=== PATIENT | female | born 1940 | race Caucasian/White ===

== ENCOUNTER → 2017-04-11 | Outpatient (CLI) | payer MEDICARE, BC ==
--- NOTE | 2017-04-11 11:14 | MR ---
EXAMINATION TYPE: MR brain wo con, MR angio head wo con DATE OF EXAM: 04/11/2017 10:55 AM COMPARISON: NONE HISTORY: chronic post traumatic headaches FINDINGS: The ventricles, basal cisterns and sulci overlying the cerebral convexities are mildly enlarged. There is evidence of mild periventricular white matter ischemic demyelination. Remote deep white matter insults are also noted. No acute edema is seen on diffusion weighted imaging. There is no evidence for midline shift or mass effect. Acute intracranial hemorrhage or extra-axial collection is not evident. Complete opacification left maxillary sinus with inspissated mucus. Additional mucosal thickening of the sphenoid sinus ethmoid air cells and frontal sinus. Mastoid air cells are well-aerated IMPRESSION: Age-related atrophic and chronic small vessel ischemic change. No acute intracranial process at this time. Chronic sinusitis. EXAMINATION TYPE: MR brain wo con, MR angio head wo con DATE OF EXAM: 04/11/2017 10:55 AM COMPARISON: NONE HISTORY: chronic post traumatic headaches Three-dimensional [id number] intracranial MRA was performed with multiple intensity projection im ages submitted and source data reviewed at the workstation. The vertebrobasilar system as well as intracranial portions of the internal carotid arteries and thei r major tributaries are patent. I do not see evidence for sizable aneurysm or vascular malformation. IMPRESSION: Normal study.
== END | disposition home or self-care (01) ==
LOC: RADMRIMAIN 10:02
PROVIDERS: ATTEND Psychiatry & Neurology Neurology
DX: G31.9 Degenerative disease of nervous system, unspecified (principal); I67.82 Cerebral ischemia
CPT/HCPCS: 70544; 70551

== ENCOUNTER 2017-12-05 23:12 | Inpatient (IN) | payer MEDICARE, BC ==
[2017-12-05] MEDS ORDERED: ONDANSETRON 4 MG/2 ML VIAL IVP STA (23:37)
[2017-12-05] MEDS ORDERED: SODIUM CHLORIDE 0.9% 500 ML IV STA (23:37)
--- NOTE | 2017-12-05 23:45 | ED ---
Weakness HPI - General Chief complaint: Weakness Stated complaint: flu like symptoms Time Seen by Provider: 12/05/17 23:16 Source: patient, EMS Mode of arrival: EMS Limitations: physical limitation - History of Present Illness Initial comments: This patient is 77-year-old woman who presents by ambulance to be evaluated for vomiting and weakness. The patient states that she was in her usual state of health until about 4 days ago when she started feeling nauseated and having multiple rounds of vomiting. She states that over the past few days she has also started feeling fatigued and having generalized weakness. She denies any focal weakness. The patient is denying any pains including no pain in the chest , back, or abdomen. She is not having any shortness of breath she states she was trying to walk and then she had some exertional dyspnea. Patient's history is notable for previous coronary bypass approximately 10 years ago. She states that these are not the symptoms she was having at that time. MD Complaint: generalized weakness Onset/Timin -: days(s) - Related Data Home Medications Medication Instructions Recorded Confirmed Alendronate Sodium [Fosamax] 35 mg PO WEEKLY 05/20/15 05/20/15 Allopurinol [Zyloprim] 100 mg PO DAILY 05/20/15 05/20/15 B Complex-Vit C-Vit E-Zinc [Z-Bec] 1 each PO DAILY@1200 05/20/15 05/20/15 Biotin 5 mg PO DAILY 05/20/15 05/20/15 Cholecalciferol [Vitamin D3] 5,000 unit PO BID 05/20/15 05/20/15 Insuln Asp Prt/Insulin Aspart 18 unit SQ QA 05/20/15 05/20/15 [NovoLOG MIX 70-30 VIAL] Isosorbide Mononitrate ER [Imdur] 30 mg PO QAM 05/20/15 05/20/15 Levothyroxine Sodium [Synthroid] 150 mcg PO DAILY 05/20/15 05/20/15 Lisinopril [Zestril] 10 mg PO DAILY 05/20/15 05/20/15 Nabumetone [Relafen] 750 mg PO BID 05/20/15 05/20/15 PARoxetine [Paxil] 20 mg PO DAILY 05/20/15 05/20/15 Ranitidine HCl [Zantac] 150 mg PO BID 05/20/15 05/20/15 Topiramate 50 mg PO BID 05/20/15 05/20/15 metFORMIN HCL [Glucophage Xr] 500 mg PO BID 05/20/15 05/20/15 Previous Rx's Medication Instructions Recorded Aspirin 81 mg PO DAILY chew 05/23/15 Carvedilol [Coreg] 3.125 mg PO BID-W/MEALS #60 tab 05/23/15 Furosemide [Lasix] 40 mg PO BID@0900,1600 #60 tab 05/23/15 Spironolactone [Aldactone] 25 mg PO DAILY #30 tab 05/23/15 Allergies Allergy/AdvReac Type Severity Reaction Status Date / Time No Known Allergies Allergy Verified 05/20/15 09:58 Review of Systems ROS Statement: Those systems with pertinent positive or pertinent negative responses have been documented in the HPI. ROS Other: All systems not noted in ROS Statement are negative. Past Medical History Past Medical History: Coronary Artery Disease (CAD), Diabetes Mellitus, GERD/ Reflux, GI Bleed, Hypertension, Osteoarthritis (OA) Additional Past Medical History / Comment(s): RT FOOT ULCER/DEBRIDEMENT , SINUS PROBLEMS, CONSTIPATION, COPD History of Any Multi-Drug Resistant Organisms: None Reported Past Surgical History: Appendectomy, Coronary Bypass/CABG, Heart Catheterization , Hysterectomy, Orthopedic Surgery Additional Past Surgical History / Comment(s): cataracts, TRIPLE CABG, COLONOSCOPY, DEBRIDMENT OF RT FOOT ULCER . Past Anesthesia/Blood Transfusion Reactions: No Reported Reaction Past Psychological History: No Psychological Hx Reported Smoking Status: Former smoker Past Alcohol Use History: Rare Past Drug Use History: None Reported - Past Family History Father History Unknown: Yes Family Medical History: Myocardial Infarction (MT) Mother History Unknown: Yes Family Medical History: Congestive Heart Failure (CHF) Additional Family Medical History / Comment(s): chf General Exam Limitations: physical limitation General appearance: alert, in no apparent distress, obese Head exam: Present: atraumatic, normocephalic Eye exam: Present: normal appearance. Absent: scleral icterus, conjunctival injection ENT exam: Present: mucous membranes dry Respiratory exam: Present: normal lung sounds bilaterally. Absent: respiratory distress, wheezes, rales, rhonchi, stridor Cardiovascular Exam: Present: regular rate, normal rhythm, normal heart sounds. Absent: systolic murmur, diastolic murmur, rubs, gallop GI/Abdominal exam: Present: soft, diminished bowel sounds. Absent: distended, tenderness, guarding, rebound, mass Extremities exam: Present: normal capillary refill, pedal edema. Absent: calf tenderness Back exam: Present: normal inspection. Absent: CVA tenderness (R), CVA tenderness (L) Neurological exam: Present: alert Skin exam: Present: warm, dry, intact, normal color. Absent: rash Course Vital Signs 12/05/17 12/06/17 23:14 00:14 Temperature 97.7 F Pulse Rate 93 95 Respiratory 18 20 Rate Blood Pressure 134/60 133/86 O2 Sat by Pulse 98 99 Oximetry EKG Findings - EKG Results: EKG: interpreted by ERMD, sinus rhythm (Rate approximately 90 bpm) - Blocks, [place], Hypertrophy, ST Abn: QRS axis and voltage: left axis deviation (-30 to -90) Medical Decision Making - Medical Decision Making The patient is 77-year-old woman in by ambulance for nausea, vomiting, and generalized weakness. We did receive an EKG from EMS just before her arrival that was interpreted as showing possible inferior STEMI. We did repeat an EKG here and I discussed with the senior software developer on-call. The EKG does appear to be similar to the previous one on record from 05/20/2015. In addition, the patient is not having chest pain dyspnea diaphoresis only the nausea and vomiting which is been going on for 4 days. - Lab Data Result diagrams: 12/05/17 23:14 12/05/17 23:14 Lab Results 12/05/17 12/05/17 12/05/17 Range/Units 23:14 23:14 23:14 WBC 10.1 (3.8-10.6) k/uL RBC 5.12 (3.80-5.40) m/uL Hgb 13.5 (11.4-16.0) gm/dL Hct 43.0 (34.0-46.0) % MCV 84.1 (80.0-100.0) fL MCH 26.5 (25.0-35.0) pg MCHC 31.5 (31.0-37.0) g/dL RDW 16.6 H (11.5-15.5) % Plt Count 176 (150-450) k/uL Neutrophils % 80 % Lymphocytes % 13 % Monocytes % 6 % Eosinophils % 0 % Basophils % 0 % Neutrophils # 8.1 H (1.3-7.7) k/uL Lymphocytes # 1.3 (1.0-4.8) k/uL Monocytes # 0.6 (0-1.0) k/uL Eosinophils # 0.0 (0-0.7) k/uL Basophils # 0.0 (0-0.2) k/uL Hypochromasia Moderate Poikilocytosis Slight Anisocytosis Slight Sodium 116 L* (137-145) mmol/L Potassium 5.0 (3.5-5.1) mmol/L Chloride 78 L* (98-107) mmol/L Carbon Dioxide 20 L (22-30) mmol/L Anion Gap 18 mmol/L BUN 16 (7-17) mg/dL Creatinine 1.20 H (0.52-1.04) mg/dL Est GFR (MDRD) Af Amer 53 (>60 ml/min/1.73 sqM) Est GFR (MDRD) Non-Af 43 (>60 ml/min/1.73 sqM) Glucose 162 H (74-99) mg/dL Calcium 9.2 (8.4-10.2) mg/dL Total Bilirubin 1.5 H (0.2-1.3) mg/dL AST 167 H (14-36) U/L ALT 103 H (9-52) U/L Alkaline Phosphatase 106 (38-126) U/L Troponin I 0.035 H* (0.000-0.034) ng/mL Total Protein 6.5 (6.3-8.2) g/dL Albumin 3.9 (3.5-5.0) g/dL Amylase <30 L (30-110) U/L Lipase 19 L (23-300) U/L Disposition Clinical Impression: Hyponatremia, Hypochloremia, Vomiting, Acute renal injury Disposition: ADMITTED IP TO THIS HOSP Condition: Poor Referrals: Vlad Lemos MD [Primary Care Provider] - 1-2 days
[2017-12-06 00:03] LABS: ALT 103 U/L (9-52); AST 167 U/L (14-36); Albumin 3.9 g/dL (3.5-5.0); Alkaline Phosphatase 106 U/L (38-126); Amylase <30 U/L (30-110); Anion Gap 18 mmol/L; Blood Urea Nitrogen 16 mg/dL (7-17); Calcium 9.2 mg/dL (8.4-10.2); Carbon Dioxide 20 mmol/L (22-30); Glucose 162 mg/dL (74-99); Lipase 19 U/L (23-300); Total Bilirubin 1.5 mg/dL (0.2-1.3); Total Protein 6.5 g/dL (6.3-8.2)
[2017-12-06 00:08] LABS: Chloride 78 mmol/L (98-107); Sodium 116 mmol/L (137-145)
--- NOTE | 2017-12-06 00:14 | XR ---
EXAMINATION TYPE: XR chest 2V DATE OF EXAM: 12/06/2017 COMPARISON: 05/22/2015 HISTORY: Chest pain TECHNIQUE: Frontal and lateral views of the chest are obtained. FINDINGS: Heart is enlarged. There is no gross heart failure. There are sternal wires. Thoracic aort a is atheromatous. There is blunting of costophrenic angles. IMPRESSION: Cardiomegaly with small pleural effusions. There is no overt heart failure. Healed granu lomatous disease. The pulmonary vascularity is slightly increased compared to last exam.
[2017-12-06 00:18] LABS: Anisocytosis Slight; Basophils % (A) 0 %; Eosinophils % (A) 0 %; HGB 13.5 gm/dL (11.4-16.0); Hypochromasia Moderate; Lymphocytes # (A) 1.3 k/uL (1.0-4.8); Lymphocytes % (A) 13 %; MCH 26.5 pg (25.0-35.0); MCHC 31.5 g/dL (31.0-37.0); MCV 84.1 fL (80.0-100.0); Mean Platelet Volume 8.3; Monocytes # (A) 0.6 k/uL (0-1.0); Monocytes % (A) 6 %; Neutrophils # (A) 8.1 k/uL (1.3-7.7); Neutrophils % (A) 80 %; Platelet Count 176 k/uL (150-450); Poikilocytosis Slight; RBC 5.12 m/uL (3.80-5.40); RDW 16.6 % (11.5-15.5); WBC 10.1 k/uL (3.8-10.6)
[2017-12-06] MEDS ORDERED: SODIUM CHLORIDE 0.9% 1,000 ML IV STA (00:21)
[2017-12-06] MEDS ORDERED: SODIUM CHLORIDE 0.9% 500 ML IV STA (00:21)
[2017-12-06] MEDS ORDERED: NALOXONE 0.4 MG/ML 1 ML VIAL IV PRN (00:34)
[2017-12-06 01:34] LABS: Potassium,Urine Random 44.1 mmol/L; Sodium, Urine Random <5 mmol/L (30-90)
[2017-12-06 01:35] LABS: Creatinine,Urine Random 252.1 mg/dL
[2017-12-06 01:42] LABS: Amorphous Sediment,Urine Rare /hpf; Appearance,Urine Cloudy (Clear); Bacteria,Urine Occasional /hpf; Bilirubin,Urine Negative (Negative); Blood,Urine Negative (Negative); Color,Urine Yellow; Glucose,Urine (UA) Negative (Negative); Hyaline Casts,Urine 39 /lpf (0-2); Ketones,Urine Negative (Negative); Leukocyte Esterase,Urine Large (Negative); Mucus,Urine Rare /hpf; Nitrite,Urine Negative (Negative); PH, Urine 5.5 (5.0-8.0); Protein,Urine 1+ (Negative); RBC,Urine 1 /hpf (0-5); Specific Gravity,Urine 1.018 (1.001-1.035); Squamous Epithelial Cell,Urine 6 /hpf (0-4); WBC,Urine 38 /hpf (0-5)
[2017-12-06 02:22] LABS: Glucose,Whole Blood 164 mg/dL (75-99)
[2017-12-06] MEDS: MELATONIN 3 MG TABLET PO PRN (03:44)
[2017-12-06 06:08] LABS: Glucose,Whole Blood 156 mg/dL (75-99)
[2017-12-06] MEDS: LEVOTHYROXINE 75 MCG TAB PO SCH (06:59)
[2017-12-06] MEDS: CARVEDILOL 3.125 MG TAB PO SCH ×2 (06:59→18:16)
[2017-12-06 08:32] LABS: Calcium 9.2 mg/dL (8.4-10.2)
[2017-12-06] MEDS: metFORMIN 500 MG TAB PO SCH ×2 (08:40→18:16)
[2017-12-06 08:41] LABS: Potassium 5.3 mmol/L (3.5-5.1)
[2017-12-06] MEDS: NON-FORMULARY DRUG (Biotin [Biotin] 5 MG) PO SCH (08:41)
[2017-12-06] MEDS: ASPIRIN 81 MG PO SCH (08:41)
[2017-12-06] MEDS: HEPARIN SODIUM,PORCINE 5,000 UNIT/ML 1 ML VIAL SQ SCH ×2 (08:42→20:52)
[2017-12-06] MEDS: INSULN ASP PRT/INSULIN ASPART 100 UNIT/ML 10 ML VIAL SQ SCH (08:43)
[2017-12-06] MEDS: ISOSORBIDE MONONITRATE ER 30 MG TAB.ER.24H PO SCH (08:43)
[2017-12-06] MEDS: TOPIRAMATE 25 MG TAB PO SCH ×2 (08:44→20:52)
[2017-12-06] MEDS ORDERED: NON-FORMULARY DRUG (Ranitidine Hcl [Zantac] 150 MG) PO SCH (09:00)
[2017-12-06] MEDS ORDERED: PARoxetine 20 MG TAB PO SCH (09:00)
[2017-12-06] MEDS ORDERED: FAMOTIDINE 20 MG/2 ML VIAL IV SCH (09:00)
[2017-12-06] MEDS ORDERED: CHOLECALCIFEROL 1,000 UNIT TAB PO SCH (09:00)
[2017-12-06] MEDS: LACTOBACILLUS ACIDOPH & BULGAR 1 EACH PACKET PO SCH (09:56)
--- NOTE | 2017-12-06 09:59 | CONS ---
CONSULTATION Mrs Marie is a 77-year-old female, known history of coronary artery disease, status post bypass grafting, prior history of cardiomyopathy, who has not been followed in our office on a regular basis, who presented with nausea and vomiting, inability to eat for 8 days. She thought she had the flu. She was not aware of any fever. On presentation, she was noted to have severe hyponatremia. Patient has a chronic dyspnea on exertion, mildly worse now. She is limited in her physical activity. She has some peripheral edema, more on the left lower extremities. She is not aware that she had any prior myocardial infarction. She has no history of PND or orthopnea. She has no palpitation or syncope or documented malignant arrhythmia. She has no chest discomfort. Her coronary risk factors are remarkable for history of hypertension. She is nondiabetic. Her lipid profile is not available to me. MEDICATION: Include Coreg 6.25 mg twice a day, aspirin, Zyloprim, Fosamax, Imdur 30 mg daily, Lasix 40 mg twice a day, levothyroxine 0.15 mg daily, lisinopril 10 mg daily, Paxil 20 mg daily, Ranitidine 150 mg twice a day, Topamax 25 mg daily, and vitamin B. REVIEW OF SYSTEMS: RESPIRATORY SYSTEM: She had dyspnea on exertion, mild cough. No fever. GI SYSTEM: She had nausea and vomiting, poor appetite, but no diarrhea. No bleeding. SYSTEM: No dysuria or hematuria. NERVOUS SYSTEM: No history of seizure. PHYSICAL EXAMINATION: She is a 77-year-old female, alert, oriented, in no apparent distress. Morbidly obese. Blood pressure 113/60 with a heart rate in the 90s. HEAD: Normocephalic, eyes sclerae nonicteric. NECK: Good upstroke. No bruit. LUNGS: Clear to auscultation. HEART: Regular rate and rhythm, S1, S2. No S3 with systolic murmur. No diastolic murmur. No rub. ABDOMEN: Soft, nontender, obese. Positive bowel sounds, no organomegaly. EXTREMITIES: +1 edema. LAB DATA: Revealed a sodium 116 yesterday, 115 today. Reviewing the old lab from 2014, the patient in 2014 had a sodium in the 123 to 127, but yet in January 2016, it was 137. Her potassium is 5.3, BUN and creatinine 17 and 1.19. Her troponin 0.035 and 0.041. Her AST is 167, ALT 103. Her lipase is 19. White blood cell of 10, hemoglobin of 13.5. EKG revealed a sinus mechanism with an incomplete right bundle branch block. Left axis deviation with interventricular conduction delay, first-degree AV block, and evidence to suggest an inferior myocardial infarction of undetermined timing. Chest x-ray revealed cardiomegaly with no clear infiltrate. IMPRESSION: 1. Severe hyponatremia could be rotated to the persistent nausea and vomiting for the last 8 days. Of note, the patient had prior history of hyponatremia. Her finding could be exacerbated by the diuretic she was on. 2. Mild renal function abnormalities could be dehydration related to the nausea and vomiting. 3. History of coronary artery disease, prior cardiomyopathy. 4. Mild troponin elevation with no clear evidence to suggest acute ischemic event. 5. Abnormal liver function tests of unknown duration or etiology. 6. History of hypertension. 7. Morbid obesity. RECOMMENDATION: From the cardiac standpoint, I will obtain echocardiogram with Doppler. I will check her thyroid function test. Will follow her renal function closely. Will obtain Nephrology consultation regarding her hyponatremia and depending on her progress, further recommendation will be made things. Thank you for this consult. Will follow with you. MMMOMOL / IJN: [id number] /
[2017-12-06] MEDS ORDERED: FUROSEMIDE 10 MG/ML 4 ML VIAL IV STA ×2 (10:05)
[2017-12-06 12:23] LABS: Glucose,Whole Blood 137 mg/dL (75-99)
[2017-12-06] MEDS: B COMPLEX-VIT C-VIT E-ZINC 1 EACH TAB PO SCH (12:27)
--- NOTE | 2017-12-06 14:59 | CONS ---
CONSULTATION REASON FOR CONSULT: Hyponatremia. HISTORY OF PRESENT ILLNESS: Patient is a 77-year-old female who was admitted to the hospital with complaints of weakness. She had been vomiting for about 4 to 5 days prior to admission. Patient denied any diarrhea. She denied any abdominal pain. She stated she has had low sodium previously about 2 times before. Patient denied any recent change in medications. She has hypothyroidism and is maintained on Synthroid. Her blood pressure was significantly low systolic in the 80s and is and she has received normal saline boluses in the ER and on the floor. Her serum sodium on admission was 116. After the fluid bolus, she was up to 115 and has remained 115 and again this morning. Her urine sodium was less than 5 but urine osmolality was at 485. PAST MEDICAL HISTORY: Hypertension, osteoarthritis, coronary artery disease, type 2 diabetes, gastroesophageal reflux disease, COPD. PAST SURGICAL HISTORY: Appendectomy, coronary artery bypass surgery, cardiac catheterization, debridement of right foot ulcer. SOCIAL HISTORY: Patient is a former smoker. No history of drug abuse or alcohol abuse. MEDICATIONS: Prior to admission included Glucophage, topiramate, Zantac, Paxil, Relafen, Zestril, Synthroid, Imdur, insulin, Biotene, vitamin D3, Zyloprim, Fosamax. PHYSICAL EXAMINATION: Patient is comfortable, awake. She is not in any acute distress. She is alert and oriented x3. Blood pressure was 113/68, heart rate 90 per minute, patient is afebrile. Examination of the heart, S1, S2. Examination of the lungs, bilateral breath sounds are heard. Decreased breath sounds at bases. No crackles or wheezing is heard. Abdomen is soft, obese, nontender. Examination of the lower extremity shows edema 1+ bilaterally. LAUNDRY PRICING CLERK exam is grossly intact. LABS: Show sodium 115, potassium 5.3, chloride 83, CO2 was 14, BUN 17, serum creatinine 1.19. ASSESSMENT: 1. Hyponatremia, initially hypovolemic with low blood pressure, status post resuscitation with fluids. serum sodium has not improved. Her urine sodium was less than 5, but osmolality was elevated. Blood pressure is now much improved. I will decrease the IV fluids. We will give her Lasix x1 and repeat another serum sodium level. TSH will be ordered along with cortisol level. 2. Cardiomyopathy, EF of 25% to 30%. 3. Type 2 diabetes. 4. History of hypertension. Blood pressure is currently low and medications are on hold. 5. Chronic kidney disease with previous creatinine at 1.1 to 1.2 mg/dL secondary to diabetic nephropathy and nephrosclerosis. Her UA shows 1+ protein. NKF stage III. 6. Gap metabolic acidosis, possibly related to hypoperfusion. PLAN: Decrease IV fluids. Lasix x1. Repeat serum sodium level. Repeat electrolytes. Check lactic acid level. Thank you for this consultation. Will continue to follow the patient with you during her hospitalization. MMODL / IJN: [id number] /
[2017-12-06 16:04] LABS: Sodium 115 mmol/L (137-145)
[2017-12-06 16:45] LABS: Glucose,Whole Blood 157 mg/dL (75-99)
[2017-12-06] MEDS ORDERED: SODIUM CHLORIDE 3%(HYPERTONIC) 500 ML IV SCH (17:45)
[2017-12-06 18:11] LABS: Glucose,Whole Blood 143 mg/dL (75-99)
[2017-12-06] MEDS ORDERED: ACETAMINOPHEN TAB 500 MG TAB PO PRN (18:52)
[2017-12-06] MEDS ORDERED: FUROSEMIDE 40 MG TAB PO SCH (19:45)
[2017-12-06 20:22] LABS: Glucose,Whole Blood 161 mg/dL (75-99)
[2017-12-06] MEDS: CEFUROXIME 250 MG TAB PO SCH (20:52)
--- NOTE | 2017-12-06 21:05 | HP ---
HISTORY AND PHYSICAL DATE OF ADMISSION: 12/06/2017. PRESENTING COMPLAINT: Nausea, vomiting. HISTORY OF PRESENTING COMPLAINT: This is a very pleasant 77-year-old patient of visiting physician Dr. Lemos whose chronic stable medical conditions include coronary artery disease, diabetes, GERD, osteoarthritis, COPD. The patient has been having nausea vomiting for a good 5 to 6 days, just drinking water, feeling extremely tired and rundown. No fevers. No headaches. No abdominal pain. No focal signs. Presented to the hospital. The patient was discovered to have a sodium of 118 and was transferred to the ICU, as patient was ordered hypertonic saline. Denied any chest pain. REVIEW OF SYSTEMS: CONSTITUTIONAL: Weak, tired. HEENT: None. RESPIRATORY: None. CARDIOVASCULAR: None. GASTROINTESTINAL: As above. GENITOURINARY: None. MUSCULOSKELETAL: Arthritic pain in the joints. DERMATOLOGICAL: None. HEMATOLOGICAL: None. LYMPHATICS: None. PSYCHIATRY: None. NEUROLOGICAL: No focal symptoms. PAST MEDICAL HISTORY: 1. Coronary artery disease with prior bypass. 2. Diabetes. 3. GERD. 4. Peptic ulcer bleed. 5. Hypertension. 6. Osteoarthritis. 7. Constipation. 8. COPD. PAST SURGICAL HISTORY: 1. Appendectomy. 2. Coronary artery bypass. 3. Hysterectomy. 4. Debridement of the right foot. SOCIAL HISTORY: The patient stopped smoking 48 years ago. Lives by herself. Does use a walker. FAMILY HISTORY: Myocardial infarction, CHF. HOME MEDICATIONS: 1. Vitamin B complex 1 capsule p.o. daily. 2. Topamax 25 mg p.o. b.i.d. 3. Zantac 150 mg p.o. b.i.d. 4. Paxil 20 mg a day. 5. Zestril 10 mg a day. 6. Synthroid 150 mcg p.o. daily. 7. Probiotic 1 capsule p.o. daily. 8. Imdur ER 30 mg p.o. daily. 9. Lasix 40 mg p.o. b.i.d. 10.Vitamin D3 2000 units p.o. daily. 11.Coreg 6.25 p.o. b.i.d. 12.Biotin 5 mg p.o. daily. 13.Aspirin 81 mg p.o. daily. 14.Allopurinol 100 mg p.o. daily. 15.Fosamax 35 mg p.o. on Sundays. ALLERGIES: NONE. PHYSICAL EXAMINATION: VITAL SIGNS ON PRESENTATION: Temperature 97.7, pulse 93, respiration 18, blood pressure 134/60, pulse ox 98% on room air. GENERAL APPEARANCE: Well built; BMI 38.9. Lying in bed, very tired-appearing. EYES: Pupils equal. Conjunctivae normal. HEENT: Oral cavity dry. NECK: JVD not raised. Mass not palpable. RESPIRATORY: Effort normal. LUNGS: Slightly decreased breath sounds. CARDIOVASCULAR: First and second sounds normal. No edema. ABDOMEN: Soft, nontender. Liver and spleen not palpable. LYMPHATIC: No lymph node palpable in neck or axillae. PSYCHIATRY: Alert and oriented x3. Mood and affect low-appearing. NEUROLOGICAL: Pupils equal. Cranial nerves grossly intact. Power and sensation grossly intact. MUSCULOSKELETAL: Evidence of osteoarthritis, especially in the hands and knees. INVESTIGATIONS: White count 10.1, hemoglobin 13.5, platelets 176. Sodium 116, potassium 5, chloride 78, bicarb 20, repeat 14. Creatinine 1.2. Serum osmolality 246. Troponin 0.035, 0.041. UA positive for leukocyte esterase, WBC, WBC clumps. ASSESSMENT: 1. Severe hypo-osmolar hyponatremia in a patient who has been drinking water but not keeping any salt down, rather asymptomatic. 2. Troponin leak, likely from hemodynamic mismatch. No evidence of acute coronary syndrome. 3. Acute urinary tract infection which may have precipitated the episode. 4. Coronary artery disease with prior history of coronary artery bypass. 5. Diabetes mellitus. 6. Hypothyroid. 7. Essential hypertension. 8. Primary osteoarthritis in multiple joints, bilateral. 9. Chronic obstructive pulmonary disease in an ex-smoker. 10.Metabolic acidosis. 11.Obesity; body mass index of 38.9. PLAN: The patient was admitted. Hypertonic saline was ordered. Will put the patient on fluid restriction of 1200 mL, add salt tablets -- 2 tablets 4 times a day -- and also avoid clear liquids like tea, coffee and water. A small dose of Lasix will be used, 20 mg a day, which will help with the hyponatremia. Telemetry is being done. Other home medications are to be continued. Care was discussed with the patient. The patient also will be given p.o. Ceftin for the UTI. The patient will require at least a 2-night stay in the hospital for the severe condition she has. MMODL / IJN: [id number] /
[2017-12-06 21:51] LABS: Potassium 5.6 mmol/L (3.5-5.1)
[2017-12-06] MEDS: SODIUM CHLORIDE TAB 1 GM TAB PO SCH (22:27)
[2017-12-06 23:03] LABS: Glucose,Whole Blood 169 mg/dL (75-99)
[2017-12-06] MEDS: INSULIN ASPART 100 UNIT/ML 1 ML 10 ML VIAL SQ SCH (23:16)
[2017-12-07] MEDS: ONDANSETRON 4 MG/2 ML VIAL IVP PRN ×2 (00:19→08:20)
[2017-12-07 01:36] LABS: Calcium 9.1 mg/dL (8.4-10.2)
[2017-12-07 01:55] LABS: Potassium 5.4 mmol/L (3.5-5.1)
[2017-12-07 05:19] LABS: Anisocytosis Slight; Basophils % (A) 0 %; Eosinophils % (A) 0 %; HCT 41.7 % (34.0-46.0); Hypochromasia Moderate; Lymphocytes # (A) 1.1 k/uL (1.0-4.8); Lymphocytes % (A) 9 %; MCH 26.7 pg (25.0-35.0); MCHC 31.1 g/dL (31.0-37.0); MCV 85.8 fL (80.0-100.0); Mean Platelet Volume 7.7; Monocytes # (A) 0.6 k/uL (0-1.0); Monocytes % (A) 5 %; Neutrophils # (A) 10.5 k/uL (1.3-7.7); Neutrophils % (A) 84 %; Platelet Count 198 k/uL (150-450); Poikilocytosis Moderate; RBC 4.85 m/uL (3.80-5.40); WBC 12.5 k/uL (3.8-10.6)
[2017-12-07 05:35] LABS: Calcium 9.3 mg/dL (8.4-10.2); Potassium 5.3 mmol/L (3.5-5.1); Uric Acid 8.8 mg/dL (3.7-7.4)
[2017-12-07] MEDS: LEVOTHYROXINE 75 MCG TAB PO SCH (06:04)
[2017-12-07] MEDS: SODIUM CHLORIDE 0.9% 1,000 ML IV SCH ×2 (06:05→22:00)
[2017-12-07 07:29] LABS: Glucose,Whole Blood 98 mg/dL (75-99)
[2017-12-07] MEDS ORDERED: INSULIN ASPART 100 UNIT/ML 1 ML 10 ML VIAL SQ SCH (07:30)
--- NOTE | 2017-12-07 08:00 | P.PN ---
Subjective Progress Note Date: 12/07/17 Principal diagnosis: This is a 77-year-old female seen in consultation because of hyponatremia and acute kidney injury secondary to nausea vomiting and Motrin. She has been given 3% saline as her sodium is in the 115,to 116 range and she has not responded, sodium stays around this range in spite of overnight receiving 3% saline at 30 mL an hour. This morning I change it to normal saline under cc an hour. Her urine sodium is 5 and urine a small tear in the 400 range suggestive of volume depletion. There is no orthostatic changes. His morning her creatinine has gone up and her urine output is oliguric range. She complains of some minimal cough and minimal shortness of breath no vomiting but some nausea. No abdominal pain she is cc not feeling well. Denies any chest pain. There was some headache that was relieved with Tylenol. Objective - Vital Signs Vital signs: Vital Signs Temp 97.5 F L 12/07/17 07:00 Pulse 76 12/07/17 07:00 Resp 17 12/07/17 07:00 BP 104/70 12/07/17 07:00 Pulse Ox 98 12/07/17 07:00 Intake & Output 12/06/17 12/07/17 12/07/17 18:59 06:59 18:59 Intake Total 650 330 100 Output Total 50 230 10 Balance 600 100 90 Intake: IV 330 100 Sodium Chloride 0.9% 1, 100 000 ml @ 100 mls/hr IV . Q10H [facility] Rx#:[id number] Sodium Chloride 3%( 330 Hypertonic) 500 ml @ 30 mls/hr IV .[id number] [facility] Rx #:[id number] Intake, IV Titration 50 Amount Sodium Chloride 3%( 50 Hypertonic) 500 ml @ 30 mls/hr IV .[id number] [facility] Rx #:[id number] Oral 600 Output: Urine 50 230 10 Uretheral (Carpenter) 75 Other: # Voids 1 On examination she is awake alert oriented. Vital signs are unremarkable. HEENT exam no JVP lymphadenopathy neck is supple no facial asymmetry pupils are equal. Lungs are clear to auscultation percussion good air entry bilaterally. Heart sounds are unremarkable no murmur rub gallop. Abdomen soft nontender no organomegaly ascites masses Extremity exam was trace to minimal edema. Neurologically awake alert oriented 3 but poor memory. - Labs CBC & Chem 7: 01/13/18 04:35 12/07/17 04:35 Labs: Abnormal Lab Results - Last 24 Hours (Table) 12/06/17 12/06/17 12/06/17 Range/Units 05:20 10:22 11:42 WBC (3.8-10.6) k/uL RDW (11.5-15.5) % Neutrophils # (1.3-7.7) k/uL Sodium 115 L* 115 L* (137-145) mmol/L Potassium 5.3 H (3.5-5.1) mmol/L Chloride 83 L (98-107) mmol/L Carbon Dioxide 14 L (22-30) mmol/L BUN (7-17) mg/dL Creatinine 1.19 H (0.52-1.04) mg/dL Glucose 149 H (74-99) mg/dL POC Glucose (mg/dL) 137 H (75-99) mg/dL Osmolality (280-301) mosm/kg Plasma Lactic Acid Dmitriy (0.7-2.0) mmol/L Uric Acid (3.7-7.4) mg/dL Ur Random Sodium (30-90) mmol/L 12/06/17 12/06/17 12/06/17 Range/Units 11:56 15:36 16:42 WBC (3.8-10.6) k/uL RDW (11.5-15.5) % Neutrophils # (1.3-7.7) k/uL Sodium 115 L* 115 L* (137-145) mmol/L Potassium (3.5-5.1) mmol/L Chloride (98-107) mmol/L Carbon Dioxide (22-30) mmol/L BUN (7-17) mg/dL Creatinine (0.52-1.04) mg/dL Glucose (74-99) mg/dL POC Glucose (mg/dL) 157 H (75-99) mg/dL Osmolality (280-301) mosm/kg Plasma Lactic Acid Dmitriy (0.7-2.0) mmol/L Uric Acid (3.7-7.4) mg/dL Ur Random Sodium (30-90) mmol/L 12/06/17 12/06/17 12/06/17 Range/Units 18:08 20:21 21:15 WBC (3.8-10.6) k/uL RDW (11.5-15.5) % Neutrophils # (1.3-7.7) k/uL Sodium 114 L* (137-145) mmol/L Potassium 5.6 H (3.5-5.1) mmol/L Chloride 82 L (98-107) mmol/L Carbon Dioxide 18 L (22-30) mmol/L BUN 19 H (7-17) mg/dL Creatinine 1.40 H (0.52-1.04) mg/dL Glucose 146 H (74-99) mg/dL POC Glucose (mg/dL) 143 H 161 H (75-99) mg/dL Osmolality (280-301) mosm/kg Plasma Lactic Acid Dmitriy (0.7-2.0) mmol/L Uric Acid (3.7-7.4) mg/dL Ur Random Sodium (30-90) mmol/L 12/06/17 12/07/17 12/07/17 Range/Units 23:01 01:04 01:04 WBC (3.8-10.6) k/uL RDW (11.5-15.5) % Neutrophils # (1.3-7.7) k/uL Sodium 115 L* (137-145) mmol/L Potassium 5.4 H (3.5-5.1) mmol/L Chloride 84 L (98-107) mmol/L Carbon Dioxide 18 L (22-30) mmol/L BUN 20 H (7-17) mg/dL Creatinine 1.50 H (0.52-1.04) mg/dL Glucose 115 H (74-99) mg/dL POC Glucose (mg/dL) 169 H (75-99) mg/dL Osmolality (280-301) mosm/kg Plasma Lactic Acid Dmitriy 2.5 H* (0.7-2.0) mmol/L Uric Acid (3.7-7.4) mg/dL Ur Random Sodium (30-90) mmol/L 12/07/17 12/07/17 12/07/17 Range/Units 03:00 04:35 04:35 WBC 12.5 H (3.8-10.6) k/uL RDW 17.0 H (11.5-15.5) % Neutrophils # 10.5 H (1.3-7.7) k/uL Sodium 115 L* (137-145) mmol/L Potassium 5.3 H (3.5-5.1) mmol/L Chloride 83 L (98-107) mmol/L Carbon Dioxide 19 L (22-30) mmol/L BUN 21 H (7-17) mg/dL Creatinine 1.60 H (0.52-1.04) mg/dL Glucose (74-99) mg/dL POC Glucose (mg/dL) (75-99) mg/dL Osmolality 244 L* (280-301) mosm/kg Plasma Lactic Acid Dmitriy (0.7-2.0) mmol/L Uric Acid 8.8 H (3.7-7.4) mg/dL Ur Random Sodium <5 L (30-90) mmol/L 12/07/17 Range/Units 05:11 WBC (3.8-10.6) k/uL RDW (11.5-15.5) % Neutrophils # (1.3-7.7) k/uL Sodium (137-145) mmol/L Potassium (3.5-5.1) mmol/L Chloride (98-107) mmol/L Carbon Dioxide (22-30) mmol/L BUN (7-17) mg/dL Creatinine (0.52-1.04) mg/dL Glucose (74-99) mg/dL POC Glucose (mg/dL) (75-99) mg/dL Osmolality (280-301) mosm/kg Plasma Lactic Acid Dmitriy 2.6 H* (0.7-2.0) mmol/L Uric Acid (3.7-7.4) mg/dL Ur Random Sodium (30-90) mmol/L Assessment and Plan Assessment: Impression. 1. Acute kidney injury from volume depletion and from Motrin. 2. Severe hyponatremia not responding to IV fluids in spite of the fact that all her labs including urine sodium and urine osmolality uric acid all point to volume depletion. This possibly may be somewhat complicated by discontinuing Synthroid for about 3 days prior to admission. Her TSH was normal and cortisol is normal 3. Mild hyperkalemia secondary to acute kidney injury and slightly high blood sugars currently sodium is 5.3. 4. Non-gap acidosis with bicarb 19 5. mildly high lactic acid, on antibiotics. No suggestion of any sepsis though. 1. Recommendations 1. Will give her 500 mL of normal saline bolus. 2. Maintain normal saline and lites Q3 to 4 hours as needed. 3. Watch for congestive heart failure. 4. Watch for hyperkalemia.
[2017-12-07] MEDS: SODIUM CHLORIDE TAB 1 GM TAB PO SCH ×4 (08:02→23:02)
[2017-12-07] MEDS: LACTOBACILLUS ACIDOPH & BULGAR 1 EACH PACKET PO SCH (08:03)
[2017-12-07] MEDS: TOPIRAMATE 25 MG TAB PO SCH ×2 (08:03→20:41)
[2017-12-07] MEDS: CEFUROXIME 250 MG TAB PO SCH ×2 (08:03→20:41)
[2017-12-07] MEDS: HEPARIN SODIUM,PORCINE 5,000 UNIT/ML 1 ML VIAL SQ SCH ×2 (08:03→20:41)
[2017-12-07] MEDS: INSULIN ASPART 100 UNIT/ML 1 ML 10 ML VIAL SQ SCH ×4 (08:03→20:19)
[2017-12-07] MEDS: CARVEDILOL 6.25 MG TAB PO SCH ×2 (08:04→18:42)
[2017-12-07] MEDS: ALLOPURINOL 100 MG TAB PO SCH (08:04)
[2017-12-07] MEDS: ASPIRIN 81 MG PO SCH (08:04)
[2017-12-07] MEDS: NON-FORMULARY DRUG (Biotin [Biotin] 5 MG) PO SCH (08:05)
[2017-12-07] MEDS: ISOSORBIDE MONONITRATE ER 30 MG TAB.ER.24H PO SCH (08:05)
[2017-12-07] MEDS: INSULN ASP PRT/INSULIN ASPART 100 UNIT/ML 10 ML VIAL SQ SCH (08:19)
[2017-12-07] MEDS ORDERED: SODIUM CHLORIDE 0.9% 500 ML IV ONE ×2 (08:44→10:42)
[2017-12-07] MEDS ORDERED: FAMOTIDINE 20 MG/2 ML VIAL IV SCH (09:00)
[2017-12-07] MEDS ORDERED: FUROSEMIDE 40 MG TAB PO SCH (09:00)
[2017-12-07 10:10] LABS: Calcium 9.5 mg/dL (8.4-10.2); Potassium 5.5 mmol/L (3.5-5.1)
--- NOTE | 2017-12-07 10:39 | PN ---
PROGRESS NOTE HISTORY: Ms. Marie is a 77-year-old female who presented with nausea and vomiting and fatigue for the last few days, was noted to have severe hyponatremia. Her hyponatremia persisted in spite of receiving IV hypertonic saline. She continues to be fatigued today. She denies any chest pain. She has no further nausea and vomiting. She has no cough or fever. She continues to be in sinus mechanism and hemodynamically stable. She is receiving IV fluids at this time. Otherwise, she is on Coreg 6.5 mg twice a day, isosorbide mononitrate 30 mg daily, levothyroxine, and Topamax. PHYSICAL EXAMINATION: Blood pressure 114/70 with a heart rate in the 70s. LUNGS: No wheezes or rales. HEART: Regular rate, rhythm S1, S2. No S3 with a systolic murmur. No diastolic murmur. ABDOMEN: Soft, obese, nontender. EXTREMITIES: +1 edema. LAB DATA: Revealed sodium of 115, BUN creatinine 21 and 1.6. Potassium 5.3. Her urine sodium is less than 5. Hemoglobin of 13. IMPRESSION: 1. Severe hyponatremia, treatment in progress. 2. Episode of nausea and vomiting, improved. 3. Morbid obesity. 4. Renal failure, worsening. 5. History of coronary artery disease. 6. History of cardiomyopathy. RECOMMENDATIONS: Will continue treatment as noted by the Nephrology service. I will review the results of her echocardiogram. Depending on her progress, further recommendation will be made. MMODL / IJN: [id number] /
--- NOTE | 2017-12-07 11:05 | P.CNPUL ---
History of Present Illness Consult date: 12/07/17 Reason for consult: other (Acute hyponatremia) Chief complaint: Weakness History of present illness: This is a 77-year-old female, history of diabetes, gout, hypothyroidism, hypertension, depression, osteoarthritis, maintained on diuretics at home, patient presented to the ER with mostly 1 week history of weakness, nausea but no vomiting, no diarrhea, no abdominal pain. According to the ER physician she had multiple bouts of vomiting, but according the patient she did not actually vomit. He was just nauseated and she was experiencing dry heaves. Patient has been complaining of weakness and fatigue, headache no blurred vision no dizziness, no vomiting, no melena, no hematemesis, no dysuria, no frequency, no urgency. Upon evaluation in the ER, her sodium was noted to be 114. Patient was initially given 3% saline, and now she is on 0.9 normal saline. Sodium at this point is 119, potassium is 5.5, chloride is 86, anion gap is 15, BUN is 21 and creatinine is 1.55. Serum osmolality was 244 with urine osmolality of 485, and urine sodium less than 5. Patient was felt by nephrology that she may have hyponatremia with hypovolemia and low blood pressure, cortisol level was normal and thyroid profile was normal. Chest x-ray is relatively unremarkable, no evidence of malignancy or pneumonia noted on the chest x-ray. Review of Systems 14 point review of systems were obtained, please refer to pertinent positives in HPI, otherwise remaining systems are negative. Past Medical History Past Medical History: Coronary Artery Disease (CAD), Diabetes Mellitus, GERD/ Reflux, GI Bleed, Hypertension, Osteoarthritis (OA) Additional Past Medical History / Comment(s): RT FOOT ULCER/DEBRIDEMENT , SINUS PROBLEMS, CONSTIPATION, COPD History of Any Multi-Drug Resistant Organisms: None Reported Past Surgical History: Appendectomy, Coronary Bypass/CABG, Heart Catheterization , Hysterectomy, Orthopedic Surgery Additional Past Surgical History / Comment(s): cataracts, TRIPLE CABG, COLONOSCOPY, DEBRIDMENT OF RT FOOT ULCER . Past Anesthesia/Blood Transfusion Reactions: No Reported Reaction Past Psychological History: No Psychological Hx Reported Smoking Status: Former smoker Past Alcohol Use History: Rare Additional Past Alcohol Use History / Comment(s): SMOKED 2 PPD FOR FEW YEARS THEN QUIT 48 YEARS AGO Past Drug Use History: None Reported - Past Family History Father History Unknown: Yes Family Medical History: Myocardial Infarction (SD) Mother History Unknown: Yes Family Medical History: Congestive Heart Failure (CHF) Additional Family Medical History / Comment(s): chf Medications and Allergies Home Medications Medication Instructions Recorded Confirmed Type Alendronate Sodium [Fosamax] 35 mg PO PEREZ 05/20/15 12/06/17 History Allopurinol [Zyloprim] 100 mg PO DAILY 05/20/15 12/06/17 History Biotin 5 mg PO DAILY 05/20/15 12/06/17 History Cholecalciferol [Vitamin D3] 2,000 unit PO DAILY 05/20/15 12/06/17 History Isosorbide Mononitrate ER [Imdur] 30 mg PO QAM 05/20/15 12/06/17 History Levothyroxine Sodium [Synthroid] 150 mcg PO DAILY 05/20/15 12/06/17 History Lisinopril [Zestril] 10 mg PO DAILY 05/20/15 12/06/17 History PARoxetine [Paxil] 20 mg PO DAILY 05/20/15 12/06/17 History Ranitidine HCl [Zantac] 150 mg PO BID 05/20/15 12/06/17 History Aspirin 81 mg PO DAILY chew 05/23/15 12/06/17 Rx Furosemide [Lasix] 40 mg PO BID@0900,1600 #60 tab 05/23/15 12/06/17 Rx Carvedilol [Coreg] 6.25 mg PO BID 12/06/17 12/06/17 History L.acidoph,Paracasei, B.lactis 1 cap PO DAILY 12/06/17 12/06/17 History [Probiotic] Topiramate [Topamax] 25 mg PO BID 12/06/17 12/06/17 History Vitamin B Complex 1 cap PO DAILY 12/06/17 12/06/17 History Allergies Allergy/AdvReac Type Severity Reaction Status Date / Time No Known Allergies Allergy Verified 12/06/17 08:28 Physical Exam Vitals: Vital Signs Temp Pulse Pulse Resp BP BP Pulse Ox 12/07/17 10:00 78 18 126/71 97 12/07/17 09:00 73 19 114/78 98 12/07/17 08:30 74 18 114/78 99 12/07/17 08:00 98.4 F 75 17 125/68 99 12/07/17 07:30 75 14 125/68 97 12/07/17 07:00 97.5 F L 76 17 104/70 98 12/07/17 06:30 76 13 99 12/07/17 06:00 82 20 106/81 100 12/07/17 05:30 78 13 106/81 12/07/17 05:00 95.6 F L 80 16 119/74 12/07/17 04:30 80 22 119/74 99 12/07/17 04:00 74 79 24 103/83 100 12/07/17 03:30 78 13 103/83 98 12/07/17 03:00 78 13 100/65 100 12/07/17 02:30 77 20 100/65 99 12/07/17 02:00 71 12 103/69 97 12/07/17 01:30 97.3 F L 83 24 103/69 97 12/07/17 01:00 76 13 114/72 98 12/07/17 00:30 75 16 114/72 98 12/07/17 00:00 69 79 23 116/75 98 12/06/17 23:43 77 16 116/75 98 12/06/17 23:30 74 22 116/75 98 12/06/17 23:00 95.4 F L 77 21 110/62 99 12/06/17 22:30 75 18 110/62 88 L 12/06/17 22:00 78 31 H 111/74 96 12/06/17 21:30 77 29 H 111/74 97 12/06/17 21:00 76 25 H 119/76 98 12/06/17 20:30 96.3 F L 77 57 H 119/76 98 12/06/17 20:00 77 79 13 108/78 98 12/06/17 19:30 81 28 H 108/78 97 12/06/17 19:00 78 25 H 133/73 97 12/06/17 18:50 81 12 133/73 98 12/06/17 18:40 83 23 133/73 97 12/06/17 18:30 81 55 H 133/73 97 12/06/17 18:20 82 15 133/73 97 12/06/17 18:10 78 12 97 12/06/17 18:08 81 8 L 97 12/06/17 16:00 96.7 F L 79 18 116/68 98 12/06/17 12:00 96.8 F L 83 18 122/76 98 Intake and Output 12/06/17 12/07/17 12/07/17 22:59 06:59 14:59 Intake Total 159 839 6332 Output Total 0 230 35 Balance 671 25 8457 Intake: IV 90 240 550 Sodium Chloride 0.9% 1, 550 000 ml @ 100 mls/hr IV . Q10H [facility] Rx#:[id number] Sodium Chloride 3%( 90 240 Hypertonic) 500 ml @ 30 mls/hr IV .[id number] [facility] Rx #:[id number] Intake, IV Titration 50 500 Amount Sodium Chloride 0.9% 500 500 ml @ 999 mls/hr IV .Q31M [facility] Rx#:[id number] Sodium Chloride 3%( 50 Hypertonic) 500 ml @ 30 mls/hr IV .[id number] [facility] Rx #:[id number] Oral 200 360 Output: Urine 0 230 35 Uretheral ([facility]arp[facility]) 75 Other: Voiding Method Indwelling Catheter # Voids 1 Physical Exam: Revealed a 77-year-old female in no distress. HEENT:[Neck is supple.] [No neck masses.] [No thyromegaly.] [No JVD.] Chest: [Clear throughout, no crackles, no rhonchi, no wheezes.] Cardiac Exam: [Normal S1 and S2, no S3 gallop, no murmur.] Abdomen: [Soft, nontender, no megaly, no rebound, no guarding, normal bowel sounds.] Extremities: [No clubbing, no edema, no cyanosis.] Neurological Exam: [No focal neurologic deficit. Lymphatics: No lymphadenopathy Psychiatric: Normal mood affect and mental status exam.] Results - Laboratory Findings CBC and BMP: 12/07/17 04:35 12/07/17 08:47 Abnormal lab findings: Abnormal Labs 12/05/17 12/05/17 12/05/17 23:14 23:14 23:14 WBC RDW 16.6 H Neutrophils # 8.1 H Sodium 116 L* Potassium Chloride 78 L* Carbon Dioxide 20 L BUN Creatinine 1.20 H Glucose 162 H POC Glucose (mg/dL) Osmolality Plasma Lactic Acid Dmitriy Uric Acid Total Bilirubin 1.5 H AST 167 H ALT 103 H Troponin I 0.035 H* Amylase <30 L Lipase 19 L Urine Appearance Urine Protein Ur Leukocyte Esterase Urine WBC Urine WBC Clumps Ur Squamous Epith Cells Amorphous Sediment Urine Bacteria Hyaline Casts Urine Mucus Ur Random Sodium 12/05/17 12/06/17 12/06/17 23:14 01:09 01:09 WBC RDW Neutrophils # Sodium Potassium Chloride Carbon Dioxide BUN Creatinine Glucose POC Glucose (mg/dL) Osmolality 246 L* Plasma Lactic Acid Dmitriy Uric Acid Total Bilirubin AST ALT Troponin I Amylase Lipase Urine Appearance Cloudy H Urine Protein 1+ H Ur Leukocyte Esterase Large H Urine WBC 38 H Urine WBC Clumps Few H Ur Squamous Epith Cells 6 H Amorphous Sediment Rare H Urine Bacteria Occasional H Hyaline Casts 39 H Urine Mucus Rare H Ur Random Sodium <5 L 12/06/17 12/06/17 12/06/17 02:10 05:20 05:20 WBC RDW Neutrophils # Sodium 115 L* Potassium 5.3 H Chloride 83 L Carbon Dioxide 14 L BUN Creatinine 1.19 H Glucose 149 H POC Glucose (mg/dL) 164 H Osmolality Plasma Lactic Acid Dmitriy Uric Acid Total Bilirubin AST ALT Troponin I 0.041 H* Amylase Lipase Urine Appearance Urine Protein Ur Leukocyte Esterase Urine WBC Urine WBC Clumps Ur Squamous Epith Cells Amorphous Sediment Urine Bacteria Hyaline Casts Urine Mucus Ur Random Sodium 12/06/17 12/06/17 12/06/17 06:07 10:22 11:42 WBC RDW Neutrophils # Sodium 115 L* Potassium Chloride Carbon Dioxide BUN Creatinine Glucose POC Glucose (mg/dL) 156 H 137 H Osmolality Plasma Lactic Acid Dmitriy Uric Acid Total Bilirubin AST ALT Troponin I Amylase Lipase Urine Appearance Urine Protein Ur Leukocyte Esterase Urine WBC Urine WBC Clumps Ur Squamous Epith Cells Amorphous Sediment Urine Bacteria Hyaline Casts Urine Mucus Ur Random Sodium 12/06/17 12/06/17 12/06/17 11:56 15:36 16:42 WBC RDW Neutrophils # Sodium 115 L* 115 L* Potassium Chloride Carbon Dioxide BUN Creatinine Glucose POC Glucose (mg/dL) 157 H Osmolality Plasma Lactic Acid Dmitriy Uric Acid Total Bilirubin AST ALT Troponin I Amylase Lipase Urine Appearance Urine Protein Ur Leukocyte Esterase Urine WBC Urine WBC Clumps Ur Squamous Epith Cells Amorphous Sediment Urine Bacteria Hyaline Casts Urine Mucus Ur Random Sodium 12/06/17 12/06/17 12/06/17 18:08 20:21 21:15 WBC RDW Neutrophils # Sodium 114 L* Potassium 5.6 H Chloride 82 L Carbon Dioxide 18 L BUN 19 H Creatinine 1.40 H Glucose 146 H POC Glucose (mg/dL) 143 H 161 H Osmolality Plasma Lactic Acid Dmitriy Uric Acid Total Bilirubin AST ALT Troponin I Amylase Lipase Urine Appearance Urine Protein Ur Leukocyte Esterase Urine WBC Urine WBC Clumps Ur Squamous Epith Cells Amorphous Sediment Urine Bacteria Hyaline Casts Urine Mucus Ur Random Sodium 12/06/17 12/07/17 12/07/17 23:01 01:04 01:04 WBC RDW Neutrophils # Sodium 115 L* Potassium 5.4 H Chloride 84 L Carbon Dioxide 18 L BUN 20 H Creatinine 1.50 H Glucose 115 H POC Glucose (mg/dL) 169 H Osmolality Plasma Lactic Acid Dmitriy 2.5 H* Uric Acid Total Bilirubin AST ALT Troponin I Amylase Lipase Urine Appearance Urine Protein Ur Leukocyte Esterase Urine WBC Urine WBC Clumps Ur Squamous Epith Cells Amorphous Sediment Urine Bacteria Hyaline Casts Urine Mucus Ur Random Sodium 12/07/17 12/07/17 12/07/17 03:00 04:35 04:35 WBC 12.5 H RDW 17.0 H Neutrophils # 10.5 H Sodium 115 L* Potassium 5.3 H Chloride 83 L Carbon Dioxide 19 L BUN 21 H Creatinine 1.60 H Glucose POC Glucose (mg/dL) Osmolality 244 L* Plasma Lactic Acid Dmitriy Uric Acid 8.8 H Total Bilirubin AST ALT Troponin I Amylase Lipase Urine Appearance Urine Protein Ur Leukocyte Esterase Urine WBC Urine WBC Clumps Ur Squamous Epith Cells Amorphous Sediment Urine Bacteria Hyaline Casts Urine Mucus Ur Random Sodium <5 L 12/07/17 12/07/17 05:11 08:47 WBC RDW Neutrophils # Sodium 119 L* Potassium 5.5 H Chloride 86 L Carbon Dioxide 18 L BUN 21 H Creatinine 1.55 H Glucose POC Glucose (mg/dL) Osmolality Plasma Lactic Acid Dmitriy 2.6 H* Uric Acid Total Bilirubin AST ALT Troponin I Amylase Lipase Urine Appearance Urine Protein Ur Leukocyte Esterase Urine WBC Urine WBC Clumps Ur Squamous Epith Cells Amorphous Sediment Urine Bacteria Hyaline Casts Urine Mucus Ur Random Sodium - Diagnostic Findings Chest x-ray: image reviewed (Cardiomegaly, and mild prominence of the pulmonary vasculature noted. No evidence of malignancy, no evidence of pneumonia.) Assessment and Plan Assessment: Impression: 1 Severe hyponatremia, hypoosmolar, hypovolemic, responding nicely to the present treatment plan including 3% saline followed by 0.9 normal saline at present. Paxil may be a contributing factor to the hyponatremia, hence I have recommended holding Paxil for now. Her serum TSH was normal, and her serum cortisol was also normal. 2 acute kidney injury from volume depletion and possibly related to Motrin. 3 mild hyperkalemia secondary to acute kidney injury. 4 mildly elevated lactic acid, no clinical evidence of sepsis, will improve with fluids. 5 history of underlying coronary artery disease and previous CABG. 6 multiple comorbidities including osteoarthritis, benign essential hypertension , hypothyroidism, type 2 diabetes, history of coronary artery disease and previous CABG, and troponin leak on presentation. Recommendation: Continue present treatment plan, patient seems to be improving, repeat sodium in a.m., and once above 121, could be transferred out of the ICU. Time with Patient: Greater than 30
[2017-12-07 12:48] LABS: Glucose,Whole Blood 83 mg/dL (75-99)
[2017-12-07] MEDS: B COMPLEX-VIT C-VIT E-ZINC 1 EACH TAB PO SCH (12:52)
[2017-12-07 14:33] LABS: Calcium 9.3 mg/dL (8.4-10.2); Total Bilirubin 1.5 mg/dL (0.2-1.3)
[2017-12-07 14:39] LABS: Potassium 6.1 mmol/L (3.5-5.1)
[2017-12-07 14:40] LABS: Albumin 3.5 g/dL (3.5-5.0); Total Protein 6.2 g/dL (6.3-8.2)
[2017-12-07] MEDS ORDERED: DEXTROSE 50%-WATER 50 ML SYRINGE IVP STA (14:52)
[2017-12-07] MEDS ORDERED: INSULIN REGULAR 100 UNIT/ML VIAL IV ONE (14:54)
[2017-12-07] MEDS ORDERED: FUROSEMIDE 10 MG/ML 4 ML VIAL IV STA (14:55)
[2017-12-07 15:07] LABS: Glucose,Whole Blood 88 mg/dL (75-99)
[2017-12-07] MEDS: SODIUM POLYSTYRENE SULFONATE 15 GM/60 ML BOTTLE PO SCH ×2 (15:09→20:41)
--- NOTE | 2017-12-07 16:34 | US ---
EXAMINATION TYPE: US kidneys/renal and bladder DATE OF EXAM: 12/07/2017 COMPARISON: NONE CLINICAL HISTORY: ARF. Difficult exam due to patient body habitus. Exam done portable in the ICU, pat ient unable to roll onto side, unable to take a breath in and hold EXAM MEASUREMENTS: Right Kidney: 9.4 x 3.8 x 4.4 cm Left Kidney: 9.4 x 3.9 x 4.5 cm No contour deforming mass is identified. The cortical echogenicity is difficult to evaluate but is fe lt to be within normal limits. Right Kidney: No hydronephrosis or masses seen Left Kidney: No hydronephrosis or masses seen Bladder: Not visualized, patient has a catheter Bilateral Jets seen: No, see above. There is no evidence for hydronephrosis at this point in time. No nephrolithiasis is seen. No maximiliano s are identified. IMPRESSION: Suboptimal examination. No significant findings.
[2017-12-07 17:21] LABS: Glucose,Whole Blood 64 mg/dL (75-99)
[2017-12-07 17:39] LABS: Glucose,Whole Blood 64 mg/dL (75-99)
[2017-12-07] MEDS ORDERED: DEXTROSE 10 % IN WATER 250 ML IV STA (17:39)
[2017-12-07 18:13] LABS: Glucose,Whole Blood 77 mg/dL (75-99)
--- NOTE | 2017-12-07 18:32 | P.PN ---
Progress Note - Text Progress Note Date: 12/07/17 DATE OF SERVICE: 12/07/2017 PRESENTING COMPLAINT: Nausea and vomiting HISTORY OF PRESENT ILLNESS: 77-year-old female who's been having nausea vomiting for 5-6 days drinking lately water being extremely tired and rundown no fevers no headaches no abdominal pains no focal signs. Diagnostics revealed sodium of 118 admitted for the same and sent to the ICU with hypertonic saline. INTERVAL HISTORY: 12/07/2017 Patient evaluated in the ICU, sitting up in her bed appears comfortable, somewhat tired, did not sleep well. 3% saline has been shut off by nephrology, patient's receiving fluid bolus per nephrology. No complaints of chest pain and palpitations or muscle aches. Appetite remains low, ate only about 20% of her breakfast, up with assistance, last p.m. prior to admission. REVIEW OF SYSTEMS: Done for constitutional ,cardiovascular, GI, pulmonary with relevant findings as above. CURRENT MEDICATIONS Tylenol, Zyloprim, aspirin, Coreg, Ceftin, heparin subcu, insulin, NovoLog, Imdur, Lactinex, Synthroid, melatonin, biotin, Zofran, sodium chloride tablet, normal saline. PHYSICAL EXAM VITAL SIGNS: Temperature 97.9, pulse 67, respirations 16, blood pressure 119/78, oxygen saturation 95% on room air. GENERAL APPEARANCE: Average build. Lying in bed, tired appearing. HEENT: Normocephalic, Pupils equal. Conjunctiva normal. JVD not raised. Mass not palpable.: RESPIRATORY: Respiratory effort normal. Lungs clear to auscultation. CARDIOVASCULAR: First and second sounds normal. No edema. ABDOMEN: Soft. Liver and spleen not palpable. No tenderness. No mass palpable. PSYCHIATRY: Alert and oriented x3. Mood and affect low appearing. INVESTIGATIONS: LABS: Sodium 123, potassium 6.1, chloride 92, dioxide 17, bun 22, creatinine 1.44, total bilirubin 1.5, AST 422, ALTs 223. Ultrasound of the bladder: No evidence for hydronephrosis at this time ASSESSMENT: -Severe hypoosmolar hyponatremia the patient is drinking water but not keeping any salt down, slow to respond -Acute kidney injury from volume depletion and Motrin -Troponin leak likely from hemodynamic mismatch, no evidence of acute coronary syndrome. -Acute urinary tract infection which may precipitate the episode. -Coronary artery disease with prior history of coronary by artery bypass -Diabetes mellitus chronically on insulin, -hypothyroidism -Essential hypertension. -Primary osteoporosis and multiple joints, bilateral. -Chronic obstructive pulmonary disease is an ex-smoker. -Metabolic acidosis. -Obesity, body mass index 38.9. PLAN: Continue fluid restriction and salt tablets and should continue to avoid clear liquids like coffee Tea water, continue normal saline and check electrolytes every 3-4 hours. Continue antibiotic therapy for urinary tract infection. When sodium is above 121 could be transferred out of the ICU. Plan of care discussed at the bedside patient is agreeable. We will follow closely CHARGE ACCOUNT IDENTIFICATION CLERK statement: Patient was seen and examined by nurse practitioner Cristiane Giron and all elements of the case discussed with attending Dr. Allen
[2017-12-07 18:40] LABS: Glucose,Whole Blood 94 mg/dL (75-99)
[2017-12-07 19:56] LABS: Albumin 3.3 g/dL (3.5-5.0); Calcium 8.8 mg/dL (8.4-10.2); Potassium 4.7 mmol/L (3.5-5.1); Total Bilirubin 1.2 mg/dL (0.2-1.3); Total Protein 5.9 g/dL (6.3-8.2)
--- NOTE | 2017-12-07 20:06 | PN ---
PROGRESS NOTE DATE OF SERVICE: December 07, 2017. ATTENDING NOTE: Patient seen and examined by me. I discussed with nurse practitioner, Ms. Giron. Patient admitted with severe hyponatremia, did receive hypertonic saline, was in the ICU, less nausea, tired, drinking small amounts. PHYSICAL EXAMINATION: Temperature 97.6, respiration 18, blood pressure 117/72, pulse ox 94% on room air. Sitting on bed, tired-appearing. Lungs are clear. The patient's sodium has come up to 123, potassium is 6.1, BUN 22, creatinine 1.44. ASSESSMENT: 1. Severe hypoosmolar hyponatremia, some improvement. 2. Severe hyperkalemia. 3. Acute urinary tract infection. PLAN: Continue fluid restriction and salt tablets. Kayexalate has been given. Nephrology is following. Prognosis is guarded. MMODL / IJN: [id number] /
[2017-12-07 20:19] LABS: Glucose,Whole Blood 91 mg/dL (75-99)
[2017-12-07] MEDS: MELATONIN 3 MG TABLET PO PRN (23:02)
[2017-12-08 05:00] LABS: Potassium 4.5 mmol/L (3.5-5.1)
[2017-12-08] MEDS: SODIUM CHLORIDE 0.9% 1,000 ML IV SCH ×3 (05:24→23:20)
[2017-12-08] MEDS: LEVOTHYROXINE 75 MCG TAB PO SCH (06:58)
[2017-12-08 07:33] LABS: Glucose,Whole Blood 99 mg/dL (75-99)
--- NOTE | 2017-12-08 08:29 | P.PN ---
Subjective Progress Note Date: 12/08/17 Principal diagnosis: This is a 77-year-old female seen in consultation because of hyponatremia and acute kidney injury secondary to nausea vomiting and Motrin. She has been given 3% saline as her sodium is in the 115,to 116 range and she has not responded, sodium stays around this range in spite of receiving 3% saline at 30 mL an hour. Yesterday I changed it to normal saline 100 an hour. Her urine sodium is 5 on 2 occasions and urine osmolality is in the 400 range. This is consistent with volume depletion. Her urine output was low her creatinine has gone up. She also had hyperkalemia which was not very well explain. An ultrasound kidney does not show any hydronephrosis. Her urine output remains low. She is awake alert oriented 3 but at times she pulls her IV lines out. She is eating fairly now denies any headache or shortness of breath. Her sodium continues to be very slowly improving now is in the 120-123 range. Creatinine is going up slowly and is 1.5 this morning. Potassium is controlled after peaking at 6.1 yesterday requiring usual treatment for hyperkalemia. This morning is potassium is 4.5. She also has mild degree of gap and non-gap acidosis. This is assumed to be from acute kidney injury. Her lactic acid was slightly high Objective - Vital Signs Vital signs: Vital Signs Temp 97.3 F L 12/08/17 04:00 Pulse 85 12/08/17 06:00 Resp 15 12/08/17 06:00 BP 138/77 12/08/17 06:00 Pulse Ox 98 12/08/17 04:00 Intake & Output 12/07/17 12/08/17 12/08/17 18:59 06:59 18:59 Intake Total 2210 1000 Output Total 485 300 Balance 1725 700 Weight 110.7 kg Intake: IV 1350 1000 Sodium Chloride 0.9% 1, 1350 1000 000 ml @ 100 mls/hr IV . Q10H [facility] Rx#:[id number] Intake, IV Titration 500 Amount Sodium Chloride 0.9% 500 500 ml @ 999 mls/hr IV .Q31M [facility] Rx#:[id number] Oral 360 Output: Urine 485 300 Other: Voiding Method Indwelling Catheter Indwelling Catheter On examination awake alert oriented 3 although sleepy at times. HEENT exam no JVP neck is supple no facial asymmetry Heart sounds unremarkable no murmur rub gallop normal sinus rhythm. Lungs are clear to auscultation percussion good air entry bilaterally. Abdomen is soft nontender obese Extremity exam was minimal to mild edema Neurologically as mentioned about no focal motor deficit awake alert oriented 3. Was able to substract 10 from 20. At times though she is reportedly pulling out IV lines. - Labs CBC & Chem 7: 12/07/17 04:35 12/08/17 04:06 Labs: Abnormal Lab Results - Last 24 Hours (Table) 12/07/17 12/07/17 12/07/17 Range/Units 08:47 13:55 17:16 Sodium 119 L* 123 L (137-145) mmol/L Potassium 5.5 H 6.1 H (3.5-5.1) mmol/L Chloride 86 L 92 L (98-107) mmol/L Carbon Dioxide 18 L 17 L (22-30) mmol/L BUN 21 H 22 H (7-17) mg/dL Creatinine 1.55 H 1.44 H (0.52-1.04) mg/dL Glucose 68 L (74-99) mg/dL POC Glucose (mg/dL) 64 L (75-99) mg/dL Total Bilirubin 1.5 H (0.2-1.3) mg/dL AST 422 H (14-36) U/L ALT 223 H (9-52) U/L Total Protein 6.2 L (6.3-8.2) g/dL Albumin (3.5-5.0) g/dL 12/07/17 12/07/17 12/08/17 Range/Units 17:38 18:59 04:06 Sodium 120 L* 121 L (137-145) mmol/L Potassium (3.5-5.1) mmol/L Chloride 89 L 89 L (98-107) mmol/L Carbon Dioxide 18 L 17 L (22-30) mmol/L BUN 21 H 21 H (7-17) mg/dL Creatinine 1.44 H 1.50 H (0.52-1.04) mg/dL Glucose 62 L (74-99) mg/dL POC Glucose (mg/dL) 64 L (75-99) mg/dL Total Bilirubin (0.2-1.3) mg/dL AST 443 H (14-36) U/L ALT 257 H (9-52) U/L Total Protein 5.9 L (6.3-8.2) g/dL Albumin 3.3 L (3.5-5.0) g/dL Microbiology - Last 24 Hours (Table) 12/07/17 03:00 Urine Culture - Preliminary Urine,Catheterized Assessment and Plan Assessment: Impression. 1. Acute kidney injury from volume depletion and from Motrin. Creatinine is up to 1.5 urine output is 485 mL and 300 mL for each of the the last 12 hours. She is on 100 mL of normal saline. Was given approximately extra 1000 mL yesterday as bolus. 2. Severe hyponatremia not responding to IV fluids in spite of the fact that all her labs including urine sodium and urine osmolality uric acid all point to volume depletion. This possibly may be somewhat complicated by discontinuing Synthroid for about 3 days prior to admission. Her TSH was normal and cortisol is normal 3. hyperkalemia secondary to acute kidney injury. 4. Non-gap acidosis and gap acidosis with bicarb down to 17 with a gap of 15, etiology is acute kidney injury 5. mildly high lactic acid, on antibiotics. No suggestion of any sepsis though. 1. Recommendations 1. Maintain normal saline at 100 mL an hour . 2. Labs daily are sufficient 3. Watch for congestive heart failure. 4. Watch for hyperkalemia.
--- NOTE | 2017-12-08 08:52 | PN ---
PROGRESS NOTE Mrs Marie is a 77-year-old female who presented with nausea and vomiting, progressive fatigue. She was noted to have severe hyponatremia. She has a known history of coronary artery disease status post coronary artery bypass grafting. She is awake but sleepy at times. According to nursing staff can be confused at times, but overall able to recognize where she is. Hemodynamically she is stable. She had no episode of tachy or significant bradycardia. Her urine output has been stable. She has continued to be at this time on aspirin once a day. Coreg 6.25 mg twice a day, isosorbide mononitrate 30 mg daily, and Topamax. PHYSICAL EXAMINATION: Blood pressure 138/70 with a heart rate in 80s. LUNGS: Clear. No wheezes. HEART: Regular rhythm S1, S2. No S3 with systolic murmur at the base. No diastolic murmur. ABDOMEN: Soft, obese, nontender. Extremities no significant edema. LAB DATA: BUN and creatinine 21 and 1.5. Her potassium is 4.5, her sodium is up to 121. IMPRESSION: 1. Severe hyponatremia, improving. 2. Renal function abnormalities stabilizing. 3. History of coronary artery disease. 4. History of cardiomyopathy. RECOMMENDATION: From the cardiac standpoint, I will continue current therapy. I will review the results of her echocardiogram. We will follow her liver function tests and her sodium closely. Depending on her progress, further recommendation will be made. MMODL / IJN: [id number] /
[2017-12-08] MEDS: SODIUM CHLORIDE TAB 1 GM TAB PO SCH ×4 (09:01→23:20)
[2017-12-08] MEDS: LACTOBACILLUS ACIDOPH & BULGAR 1 EACH PACKET PO SCH (09:01)
[2017-12-08] MEDS: CARVEDILOL 6.25 MG TAB PO SCH ×2 (09:02→18:12)
[2017-12-08] MEDS: ASPIRIN 81 MG PO SCH (09:02)
[2017-12-08] MEDS: CEFUROXIME 250 MG TAB PO SCH ×2 (09:02→20:52)
[2017-12-08] MEDS: ISOSORBIDE MONONITRATE ER 30 MG TAB.ER.24H PO SCH (09:02)
[2017-12-08] MEDS: TOPIRAMATE 25 MG TAB PO SCH ×2 (09:02→20:52)
[2017-12-08] MEDS: HEPARIN SODIUM,PORCINE 5,000 UNIT/ML 1 ML VIAL SQ SCH ×2 (09:03→20:52)
[2017-12-08] MEDS: ALLOPURINOL 100 MG TAB PO SCH (09:03)
[2017-12-08] MEDS: INSULIN ASPART 100 UNIT/ML 1 ML 10 ML VIAL SQ SCH ×4 (09:03→23:19)
[2017-12-08] MEDS: NON-FORMULARY DRUG (Biotin [Biotin] 5 MG) PO SCH (09:04)
[2017-12-08] MEDS: INSULN ASP PRT/INSULIN ASPART 100 UNIT/ML 10 ML VIAL SQ SCH (09:09)
[2017-12-08] MEDS ORDERED: RX INFO: IV CONTRAST WAS GIVEN 1 EACH MISC MISCELLANE PRN (10:59)
--- NOTE | 2017-12-08 11:21 | P.PN ---
Subjective Progress Note Date: 12/08/17 Principal diagnosis: acute hyponatremia This is a 77-year-old female, history of diabetes, gout, hypothyroidism, hypertension, depression, osteoarthritis, maintained on diuretics at home, patient presented to the ER with mostly 1 week history of weakness, nausea but no vomiting, no diarrhea, no abdominal pain. According to the ER physician she had multiple bouts of vomiting, but according the patient she did not actually vomit. He was just nauseated and she was experiencing dry heaves. Patient has been complaining of weakness and fatigue, headache no blurred vision no dizziness, no vomiting, no melena, no hematemesis, no dysuria, no frequency, no urgency. Upon evaluation in the ER, her sodium was noted to be 114. Patient was initially given 3% saline, and now she is on 0.9 normal saline. Sodium at this point is 119, potassium is 5.5, chloride is 86, anion gap is 15, BUN is 21 and creatinine is 1.55. Serum osmolality was 244 with urine osmolality of 485, and urine sodium less than 5. Patient was felt by nephrology that she may have hyponatremia with hypovolemia and low blood pressure, cortisol level was normal and thyroid profile was normal. Chest x-ray is relatively unremarkable, no evidence of malignancy or pneumonia noted on the chest x-ray. Patient was reevaluated today on 12/08/2017, feeling a bit better, however she had episodes of confusion last night and she was pulling her IV lines, she was also a bit agitated and restless.her sodium today is up to 121, rest of the labs were unremarkable, BUN is 21 creatinine is 1.50. Liver enzymes were also noted to be a bit elevated today.in by nephrology this morning, and it was felt the patient. Had acute kidney injury. Objective - Vital Signs Vital signs: Vital Signs Temp 97.7 F 12/08/17 08:00 Pulse 78 12/08/17 08:00 Resp 12 12/08/17 08:00 BP 112/62 12/08/17 08:00 Pulse Ox 96 12/08/17 08:00 Intake & Output 12/07/17 12/08/17 12/08/17 18:59 06:59 18:59 Intake Total 2210 1000 0 Output Total 485 300 40 Balance 1725 700 -40 Weight 110.7 kg Intake: IV 1350 1000 0 Sodium Chloride 0.9% 1, 1350 1000 0 000 ml @ 100 mls/hr IV . Q10H [facility] Rx#:[id number] Intake, IV Titration 500 Amount Sodium Chloride 0.9% 500 500 ml @ 999 mls/hr IV .Q31M [facility] Rx#:[id number] Oral 360 Output: Urine 485 300 40 Other: Voiding Method Indwelling Catheter Indwelling Catheter Indwelling Catheter - Exam Physical Exam: Revealed a 77-year-old female in no distress. HEENT:[Neck is supple.] [No neck masses.] [No thyromegaly.] [No JVD.] Chest: [Clear throughout, no crackles, no rhonchi, no wheezes.] Cardiac Exam: [Normal S1 and S2, no S3 gallop, no murmur.] Abdomen: [Soft, nontender, no megaly, no rebound, no guarding, normal bowel sounds.] Extremities: [No clubbing, no edema, no cyanosis.] Neurological Exam: [No focal neurologic deficit. Lymphatics: No lymphadenopathy Psychiatric: Normal mood affect and mental status exam.] - Labs CBC & Chem 7: 12/07/17 04:35 12/08/17 04:06 Labs: Abnormal Lab Results - Last 24 Hours (Table) 12/07/17 12/07/17 12/07/17 Range/Units 13:55 17:16 17:38 Sodium 123 L (137-145) mmol/L Potassium 6.1 H (3.5-5.1) mmol/L Chloride 92 L (98-107) mmol/L Carbon Dioxide 17 L (22-30) mmol/L BUN 22 H (7-17) mg/dL Creatinine 1.44 H (0.52-1.04) mg/dL Glucose 68 L (74-99) mg/dL POC Glucose (mg/dL) 64 L 64 L (75-99) mg/dL Total Bilirubin 1.5 H (0.2-1.3) mg/dL AST 422 H (14-36) U/L ALT 223 H (9-52) U/L Total Protein 6.2 L (6.3-8.2) g/dL Albumin (3.5-5.0) g/dL 12/07/17 12/08/17 Range/Units 18:59 04:06 Sodium 120 L* 121 L (137-145) mmol/L Potassium (3.5-5.1) mmol/L Chloride 89 L 89 L (98-107) mmol/L Carbon Dioxide 18 L 17 L (22-30) mmol/L BUN 21 H 21 H (7-17) mg/dL Creatinine 1.44 H 1.50 H (0.52-1.04) mg/dL Glucose 62 L (74-99) mg/dL POC Glucose (mg/dL) (75-99) mg/dL Total Bilirubin (0.2-1.3) mg/dL AST 443 H (14-36) U/L ALT 257 H (9-52) U/L Total Protein 5.9 L (6.3-8.2) g/dL Albumin 3.3 L (3.5-5.0) g/dL Microbiology - Last 24 Hours (Table) 12/07/17 03:00 Urine Culture - Final Urine,Catheterized Assessment and Plan Assessment: Impression: 1 Severe hyponatremia, hypoosmolar, hypovolemic, responding nicely to the present treatment plan including 3% saline followed by 0.9 normal saline at present. Paxil may be a contributing factor to the hyponatremia, hence I have recommended holding Paxil for now. Her serum TSH was normal, and her serum cortisol was also normal. 2 acute kidney injury from volume depletion and possibly related to Motrin. 3 mild hyperkalemia secondary to acute kidney injury. 4 mildly elevated lactic acid, no clinical evidence of sepsis, will improve with fluids. 5 history of underlying coronary artery disease and previous CABG. 6 multiple comorbidities including osteoarthritis, benign essential hypertension , hypothyroidism, type 2 diabetes, history of coronary artery disease and previous CABG, and troponin leak on presentation. Recommendation: Continue present treatment plan, patient seems to be improving, repeat sodium in a.m., patient could be transferred out of the ICU today. Time with Patient: Less than 30
[2017-12-08] MEDS: B COMPLEX-VIT C-VIT E-ZINC 1 EACH TAB PO SCH (12:20)
--- NOTE | 2017-12-08 12:20 | CT ---
EXAMINATION TYPE: CT brain wo con DATE OF EXAM: 12/08/2017 COMPARISON: Previous study dated 04/29/2013. HISTORY: Unresponsive, unequal dilated pupils CT DLP: 1846 mGycm Automated exposure control for dose reduction was used. FINDINGS: There are generalized changes of sulcal prominence and ventriculomegaly, compatible with atrophic jenny nge. There is diffuse periventricular white matter lucency, compatible with chronic white matter isch emic change. There is no acute focal lesion, mass effect or midline shift identified. I do not see ev idence of intracranial blood. There is chronic mucoperiosteal thickening involving the left maxillary and left anterior ethmoid sin uses. No depressed skull fracture is seen. IMPRESSION: 1. NO ACUTE INTRACRANIAL ABNORMALITY. 2. CHRONIC SINUS MUCOSAL DISEASE. 3. MILD ATROPHY. 4. CHRONIC WHITE MATTER ISCHEMIC CHANGE.
[2017-12-08 12:21] LABS: Glucose,Whole Blood 83 mg/dL (75-99)
[2017-12-08 13:29] LABS: Albumin 3.1 g/dL (3.5-5.0); Calcium 8.9 mg/dL (8.4-10.2); Potassium 4.3 mmol/L (3.5-5.1); Total Bilirubin 1.1 mg/dL (0.2-1.3); Total Protein 5.7 g/dL (6.3-8.2)
[2017-12-08 17:15] LABS: Glucose,Whole Blood 61 mg/dL (75-99)
[2017-12-08 17:38] LABS: Glucose,Whole Blood 62 mg/dL (75-99)
[2017-12-08 18:10] LABS: Glucose,Whole Blood 83 mg/dL (75-99)
--- NOTE | 2017-12-08 19:05 | P.PN ---
Progress Note - Text Progress Note Date: 12/08/17 DATE OF SERVICE: 12/08/2017 PRESENTING COMPLAINT: Nausea and vomiting HISTORY OF PRESENT ILLNESS: 77-year-old female who's been having nausea vomiting for 5-6 days drinking lately water being extremely tired and rundown no fevers no headaches no abdominal pains no focal signs. Diagnostics revealed sodium of 118 admitted for the same and sent to the ICU with hypertonic saline. INTERVAL HISTORY: 12/08/2017: Sitting up in bed, quite lethargic. Sodium responded well and today is 121. On exam patient's pupils were unequal, very lethargic, unable to respond to simple straightforward questions, concerns for stroke . Computed tomography scan of the brain completed negative for any acute intracranial process. Did not eat much breakfast today, currently on bed rest, last BM prior to admission. 12/07/2017 Patient evaluated in the ICU, sitting up in her bed appears comfortable, somewhat tired, did not sleep well. 3% saline has been shut off by nephrology, patient's receiving fluid bolus per nephrology. No complaints of chest pain and palpitations or muscle aches. Appetite remains low, ate only about 20% of her breakfast, up with assistance, last p.m. prior to admission. REVIEW OF SYSTEMS: Done for constitutional ,cardiovascular, GI, pulmonary with relevant findings as above. CURRENT MEDICATIONS Tylenol, Zyloprim, aspirin, Coreg, Ceftin, heparin subcu, insulin, NovoLog, Imdur, Lactinex, Synthroid, melatonin, biotin, Zofran, sodium chloride tablet, normal saline. PHYSICAL EXAM VITAL SIGNS: Temperature 97.7, pulse 78, respiratory rate 12, blood pressure 112/62, oxygen saturation 96% on 2 L GENERAL APPEARANCE: Lying in bed, tired, lethargic unable to answer questions appearing. HEENT: Normocephalic, Pupils unequal right pupil 6 mm, left pupil 3 mm. Conjunctiva normal. JVD not raised. Mass not palpable.: RESPIRATORY: Respiratory effort normal. Lungs diminished to auscultation. CARDIOVASCULAR: First and second sounds normal. No edema. ABDOMEN: Soft. Liver and spleen not palpable. No tenderness. No mass palpable. PSYCHIATRY: Unable to answer simple straightforward questions, does not respond to sternal rubbing, quite lethargic INVESTIGATIONS: LABS: Sodium 122, chloride 91, carbon dioxide 19, BUN 21, creatinine 1.46, AST 381, ALTs 264. CT of the brain: No acute intracranial abnormality, chronic sinus mucosal disease, mild atrophy, white matter ischemic changes. Blood culture: 12/07/2017: No growth after 24 hours Urine culture: 12/07/2017: No growth after 18 hours: ASSESSMENT: -Acute mental status changes, unequal pupils, concerning for stroke -Severe hypoosmolar hyponatremia, some improvement -Acute urinary tract infection -Acute kidney injury from volume depletion and Motrin -Troponin leak likely from hemodynamic mismatch, no evidence of acute coronary syndrome. -Acute urinary tract infection which may precipitate the episode. -Coronary artery disease with prior history of coronary by artery bypass -Diabetes mellitus chronically on insulin, -hypothyroidism -Essential hypertension. -Primary osteoporosis and multiple joints, bilateral. -Chronic obstructive pulmonary disease is an ex-smoker. -Metabolic acidosis. -Obesity, body mass index 38.9. PLAN: Consult neurology, head CT completed shows no acute intracranial process, neuro checks every 2 hours. Continue fluid restriction and salt tablets and should continue to avoid clear liquids like coffee Tea water, continue normal saline and check labs daily Continue antibiotic therapy for urinary tract infection. May be able to transfer patient out of the ICU tomorrow. Plan of care discussed at the bedside. We will follow closely. RN BABY statement: Patient was seen and examined by nurse practitioner Cristiane Giron and all elements of the case discussed with attending Dr. Allen
[2017-12-08 19:46] LABS: Glucose,Whole Blood 76 mg/dL (75-99)
--- NOTE | 2017-12-08 20:40 | PN ---
PROGRESS NOTE DATE OF SERVICE: 12/08/17 ATTENDING NOTE: Patient examined by me. I discussed with nurse practitioner Ms. Giron. Patient admitted with severe hyponatremia, status post hypertonic saline rather lethargic today. Earlier the nurse practitioner thought patient may have unequal pupils, not anymore. A CT scan of brain was ordered that came back negative. The patient is barely eating. Patient did get IV fluids by Nephrology. PHYSICAL EXAMINATION: Temperature 97.7, pulse 78, respiration 12, blood pressure 112/62, pulse ox 96% on 2 L. The patient lethargic but arousable. Dry mucous membranes. No focal weakness. Pupils are equal. LABORATORY DATA: Sodium 122, BUN 21, creatinine 1.46, bicarb 19, AST 381, ALT 264. ASSESSMENT: 1. Severe hypoosmolar hyponatremia, slow to respond. 2. Acute urinary tract infection. 3. Acute kidney injury could be acute tubular necrosis and prerenal. 4. Acute metabolic encephalopathy, likely from severe electrolyte abnormalities. 5. Highly doubt stroke. Will finish the workup. PLAN: Neuro checks will be done. CT scan of the brain came back negative. Neurology will be consulted. The patient did get IV fluids. There is some rise in patient's LFTs. The patient is getting normal saline at 100 mL an hour. Expect the patient to turn around by tomorrow. Overall, patient is worsened than yesterday. MMODL / IJN: [id number] /
[2017-12-08 22:08] LABS: Glucose,Whole Blood 102 mg/dL (75-99)
--- NOTE | 2017-12-08 22:49 | P.CNNES ---
History of Present Illness Consult date: 12/08/17 Reason for Consult: Patient with severe hyponatremia and anisocoria. History of Present Illness: This neurology consultation was notified to Dr. Molly Blake on 12/08/2017 at 9:40 PM. Consultation request was put in by Dr. Allen at 8 PM on 12/08/2017. This patient is a 77-year-old right-handed white female who has a known history of underlying coronary artery disease and underwent coronary artery bypass grafting in 1994. Patient was admitted to the hospital on 12/06/2017 with symptoms of nausea and vomiting for over 8 days at home. Patient thought she may have had the flu bug and was just not feeling well. She denied having any fever at home. She states she was just drinking water at home and was unable to keep any food down. She denied any headaches or abdominal pain at the time. She was brought into the emergency room at [facility] on 12/06. She was seen in the ER by Dr. Vo for further evaluation of her nausea vomiting symptoms. Her laboratory testing in the ER revealed her initial serum sodium to be 116. She was started on 3% normal saline and admitted to Hospital. Patient was seen by nephrology. She was switched over to a 0.9 normal saline about a day ago. Her serum sodium today is 122. The patient was seen by nurse practitioner Cristiane Giron in the intensive care unit today. There was concern as there appeared to be some evidence for pupil asymmetry. She was sent for a computed tomography scan of the brain for further evaluation this afternoon. CAT scan of the brain came back with no acute intracranial abnormality. Chronic sinus disease was noted. There was mild cortical atrophy noted. Chronic white matter ischemic changes were noted. On further questioning with the patient she states she has a history of cataract surgery in the past. She does show some degree of anisocoria on examination in the ICU. Her right pupil measures about 7 mm. The left pupil 5 mm. She denies any headache symptoms since coming into the hospital. Her speech is clear and she denies any focal weakness at this time. It is unclear whether her right pupil is a surgical pupil and she has had cataract surgery. Both pupils are reactive but sluggish. She is being treated for severe hyponatremia and is now currently on 0.9 normal saline for treatment. We did review her computed tomography scan films today and there is no evidence of acute stroke or hemorrhage. Unclear whether there may be some small hypodensity in the jennifer. We are recommending the patient undergo an MRI/MRA of the brain for further evaluation which can be arranged for her tomorrow morning. The patient denies any severe headache at this time. She has had 2 previous episodes of hyponatremia. When questioned about her pupil size she states she has noted her right pupil has been larger. It is unclear how long this is been ongoing. We will continue close neurological follow-up with this patient in the intensive care unit. Her overall prognosis at this time remains very guarded. Case was discussed today at length with the ICU nurse. He is aware of our recommendations. She is to be placed on neuro checks every 2 hours 24 hours. Her overall prognosis at this time remains guarded. Neurology is now been consulted for further evaluation and recommendations. Review of Systems Constitutional: Denies chills, Denies fever Eyes: denies blurred vision, denies pain Ears, nose, mouth and throat: Denies headache, Denies sore throat Cardiovascular: Denies chest pain, Denies shortness of breath Respiratory: Denies cough Gastrointestinal: Denies abdominal pain, Denies diarrhea, Denies nausea, Denies vomiting Genitourinary: Denies dysuria, Denies hematuria Musculoskeletal: Denies myalgias Integumentary: Denies pruritus, Denies rash Neurological: Reports change in mentation, Reports paresthesias, Denies numbness , Denies weakness Psychiatric: Denies anxiety, Denies depression Endocrine: Denies fatigue, Denies weight change Past Medical History Past Medical History: Coronary Artery Disease (CAD), Diabetes Mellitus, GERD/ Reflux, GI Bleed, Hypertension, Osteoarthritis (OA) Additional Past Medical History / Comment(s): RT FOOT ULCER/DEBRIDEMENT , SINUS PROBLEMS, CONSTIPATION, COPD History of Any Multi-Drug Resistant Organisms: None Reported Past Surgical History: Appendectomy, Coronary Bypass/CABG, Heart Catheterization , Hysterectomy, Orthopedic Surgery Additional Past Surgical History / Comment(s): cataracts, TRIPLE CABG, COLONOSCOPY, DEBRIDMENT OF RT FOOT ULCER . Past Anesthesia/Blood Transfusion Reactions: No Reported Reaction Past Psychological History: No Psychological Hx Reported Smoking Status: Former smoker Past Alcohol Use History: Rare Additional Past Alcohol Use History / Comment(s): SMOKED 2 PPD FOR FEW YEARS THEN QUIT 48 YEARS AGO Past Drug Use History: None Reported - Past Family History Father History Unknown: Yes Family Medical History: Myocardial Infarction ([place]) Mother History Unknown: Yes Family Medical History: Congestive Heart Failure (CHF) Additional Family Medical History / Comment(s): chf Medications and Allergies Home Medications Medication Instructions Recorded Confirmed Type Alendronate Sodium [Fosamax] 35 mg PO PEREZ 05/20/15 12/06/17 History Allopurinol [Zyloprim] 100 mg PO DAILY 05/20/15 12/06/17 History Biotin 5 mg PO DAILY 05/20/15 12/06/17 History Cholecalciferol [Vitamin D3] 2,000 unit PO DAILY 05/20/15 12/06/17 History Isosorbide Mononitrate ER [Imdur] 30 mg PO QAM 05/20/15 12/06/17 History Levothyroxine Sodium [Synthroid] 150 mcg PO DAILY 05/20/15 12/06/17 History Lisinopril [Zestril] 10 mg PO DAILY 05/20/15 12/06/17 History PARoxetine [Paxil] 20 mg PO DAILY 05/20/15 12/06/17 History Ranitidine HCl [Zantac] 150 mg PO BID 05/20/15 12/06/17 History Aspirin 81 mg PO DAILY chew 05/23/15 12/06/17 Rx Furosemide [Lasix] 40 mg PO BID@0900,1600 #60 tab 05/23/15 12/06/17 Rx Carvedilol [Coreg] 6.25 mg PO BID 12/06/17 12/06/17 History L.acidoph,Paracasei, B.lactis 1 cap PO DAILY 12/06/17 12/06/17 History [Probiotic] Topiramate [Topamax] 25 mg PO BID 12/06/17 12/06/17 History Vitamin B Complex 1 cap PO DAILY 12/06/17 12/06/17 History Allergies Allergy/AdvReac Type Severity Reaction Status Date / Time No Known Allergies Allergy Verified 12/06/17 08:28 Physical Examination - Vital Signs Vital Signs: Vital Signs Temp Pulse Pulse Resp BP Pulse Ox 12/08/17 16:00 75 20 12/08/17 15:00 71 12 12/08/17 14:00 75 20 120/76 12/08/17 13:00 76 12 120/76 12/08/17 12:05 88 18 120/76 12/08/17 11:00 84 18 112/65 12/08/17 10:00 82 12 112/65 12/08/17 09:00 84 19 111/69 12/08/17 08:00 97.7 F 78 12 112/62 96 12/08/17 06:00 85 15 138/77 12/08/17 05:00 80 10 L 138/77 12/08/17 04:00 97.3 F L 85 96 25 H 132/80 98 12/08/17 03:00 86 30 H 128/73 12/08/17 02:00 83 29 H 121/80 12/08/17 01:00 70 29 H 113/85 12/08/17 00:04 75 21 116/85 12/08/17 00:00 97.5 F L 71 18 116/85 96 12/07/17 23:56 96 13 12/07/17 23:00 73 12 118/76 12/07/17 22:00 71 13 116/80 Intake and Output 12/08/17 12/08/17 12/08/17 06:59 14:59 22:59 Intake Total 700 0 100 Output Total 160 40 100 Balance 540 -40 0 Intake: IV 700 0 100 Sodium Chloride 0.9% 1, 700 0 100 000 ml @ 100 mls/hr IV . Q10H [facility] Rx#:[id number] Output: Urine 160 40 100 Other: Voiding Method Indwelling Catheter Indwelling Catheter Indwelling Catheter Weight 110.7 kg - Constitutional General appearance: average body habitus, obese - EENT EENT: mucous membranes moist, pupils dilated (Right pupil measures 7 mm. Left pupil measures 5 mm.) - Respiratory Respiratory: lungs clear, normal breath sounds - Cardiovascular Cardiovascular: regular rate, normal S1, normal S2 Extremities: no peripheral edema bilaterally - Gastrointestinal Gastrointestinal: normoactive bowel sounds - Integumentary Integumentary: normal - Neurologic Cranial nerve examination: EOMI, VFF, V1/V2/V3 grossly intact, face symmetric, tongue midline, intact gag reflex, intact corneal reflex, normal palatal elevation Speech examination: intact Sensorimotor examination: intact Motor examination - right side: 3/5: biceps, triceps, wrist flexion, wrist extension, windows architect, 4/5: hip flexors, knee extensors, dorsiflexion, toe extension ( EHL), plantarflexion Motor examination - left side: 4/5: biceps, triceps, wrist flexion, wrist extension, windows architect, hip flexors, knee extensors, dorsiflexion, toe extension (EHL) , plantarflexion Detailed sensory examination: intact Reflex and gait examination: intact Reflexes: 1+: ankle, bicep, knee, tricep - Musculoskeletal Musculoskeletal: no pain - Psychiatric Psychiatric: mood/affect appropriate, cooperative Results - Laboratory Findings CBC and BMP: 12/07/17 04:35 12/08/17 12:36 Abnormal Lab Findings: Abnormal Labs 12/05/17 12/05/17 12/05/17 23:14 23:14 23:14 WBC RDW 16.6 H Neutrophils # 8.1 H Sodium 116 L* Potassium Chloride 78 L* Carbon Dioxide 20 L BUN Creatinine 1.20 H Glucose 162 H POC Glucose (mg/dL) Osmolality Plasma Lactic Acid Dmitriy Uric Acid Total Bilirubin 1.5 H AST 167 H ALT 103 H Troponin I 0.035 H* Total Protein Albumin Amylase <30 L Lipase 19 L Urine Appearance Urine Protein Ur Leukocyte Esterase Urine WBC Urine WBC Clumps Ur Squamous Epith Cells Amorphous Sediment Urine Bacteria Hyaline Casts Urine Mucus Ur Random Sodium 12/05/17 12/06/17 12/06/17 23:14 01:09 01:09 WBC RDW Neutrophils # Sodium Potassium Chloride Carbon Dioxide BUN Creatinine Glucose POC Glucose (mg/dL) Osmolality 246 L* Plasma Lactic Acid Dmitriy Uric Acid Total Bilirubin AST ALT Troponin I Total Protein Albumin Amylase Lipase Urine Appearance Cloudy H Urine Protein 1+ H Ur Leukocyte Esterase Large H Urine WBC 38 H Urine WBC Clumps Few H Ur Squamous Epith Cells 6 H Amorphous Sediment Rare H Urine Bacteria Occasional H Hyaline Casts 39 H Urine Mucus Rare H Ur Random Sodium <5 L 12/06/17 12/06/17 12/06/17 02:10 05:20 05:20 WBC RDW Neutrophils # Sodium 115 L* Potassium 5.3 H Chloride 83 L Carbon Dioxide 14 L BUN Creatinine 1.19 H Glucose 149 H POC Glucose (mg/dL) 164 H Osmolality Plasma Lactic Acid Dmitriy Uric Acid Total Bilirubin AST ALT Troponin I 0.041 H* Total Protein Albumin Amylase Lipase Urine Appearance Urine Protein Ur Leukocyte Esterase Urine WBC Urine WBC Clumps Ur Squamous Epith Cells Amorphous Sediment Urine Bacteria Hyaline Casts Urine Mucus Ur Random Sodium 0112/06/17 12/06/17 06:07 10:22 11:42 WBC RDW Neutrophils # Sodium 115 L* Potassium Chloride Carbon Dioxide BUN Creatinine Glucose POC Glucose (mg/dL) 156 H 137 H Osmolality Plasma Lactic Acid Dmitriy Uric Acid Total Bilirubin AST ALT Troponin I Total Protein Albumin Amylase Lipase Urine Appearance Urine Protein Ur Leukocyte Esterase Urine WBC Urine WBC Clumps Ur Squamous Epith Cells Amorphous Sediment Urine Bacteria Hyaline Casts Urine Mucus Ur Random Sodium 12/06/17 12/06/17 12/06/17 11:56 15:36 16:42 WBC RDW Neutrophils # Sodium 115 L* 115 L* Potassium Chloride Carbon Dioxide BUN Creatinine Glucose POC Glucose (mg/dL) 157 H Osmolality Plasma Lactic Acid Dmitriy Uric Acid Total Bilirubin AST ALT Troponin I Total Protein Albumin Amylase Lipase Urine Appearance Urine Protein Ur Leukocyte Esterase Urine WBC Urine WBC Clumps Ur Squamous Epith Cells Amorphous Sediment Urine Bacteria Hyaline Casts Urine Mucus Ur Random Sodium 12/06/17 12/06/17 12/06/17 18:08 20:21 21:15 WBC RDW Neutrophils # Sodium 114 L* Potassium 5.6 H Chloride 82 L Carbon Dioxide 18 L BUN 19 H Creatinine 1.40 H Glucose 146 H POC Glucose (mg/dL) 143 H 161 H Osmolality Plasma Lactic Acid Dmitriy Uric Acid Total Bilirubin AST ALT Troponin I Total Protein Albumin Amylase Lipase Urine Appearance Urine Protein Ur Leukocyte Esterase Urine WBC Urine WBC Clumps Ur Squamous Epith Cells Amorphous Sediment Urine Bacteria Hyaline Casts Urine Mucus Ur Random Sodium 12/06/17 12/07/17 12/07/17 23:01 01:04 01:04 WBC RDW Neutrophils # Sodium 115 L* Potassium 5.4 H Chloride 84 L Carbon Dioxide 18 L BUN 20 H Creatinine 1.50 H Glucose 115 H POC Glucose (mg/dL) 169 H Osmolality Plasma Lactic Acid Dmitriy 2.5 H* Uric Acid Total Bilirubin AST ALT Troponin I Total Protein Albumin Amylase Lipase Urine Appearance Urine Protein Ur Leukocyte Esterase Urine WBC Urine WBC Clumps Ur Squamous Epith Cells Amorphous Sediment Urine Bacteria Hyaline Casts Urine Mucus Ur Random Sodium 12/07/17 12/07/17 12/07/17 03:00 04:35 04:35 WBC 12.5 H RDW 17.0 H Neutrophils # 10.5 H Sodium 115 L* Potassium 5.3 H Chloride 83 L Carbon Dioxide 19 L BUN 21 H Creatinine 1.60 H Glucose POC Glucose (mg/dL) Osmolality 244 L* Plasma Lactic Acid Dmitriy Uric Acid 8.8 H Total Bilirubin AST ALT Troponin I Total Protein Albumin Amylase Lipase Urine Appearance Urine Protein Ur Leukocyte Esterase Urine WBC Urine WBC Clumps Ur Squamous Epith Cells Amorphous Sediment Urine Bacteria Hyaline Casts Urine Mucus Ur Random Sodium <5 L 12/07/17 12/07/17 12/07/17 05:11 08:47 13:55 WBC RDW Neutrophils # Sodium 119 L* 123 L Potassium 5.5 H 6.1 H Chloride 86 L 92 L Carbon Dioxide 18 L 17 L BUN 21 H 22 H Creatinine 1.55 H 1.44 H Glucose 68 L POC Glucose (mg/dL) Osmolality Plasma Lactic Acid Dmitriy 2.6 H* Uric Acid Total Bilirubin 1.5 H AST 422 H ALT 223 H Troponin I Total Protein 6.2 L Albumin Amylase Lipase Urine Appearance Urine Protein Ur Leukocyte Esterase Urine WBC Urine WBC Clumps Ur Squamous Epith Cells Amorphous Sediment Urine Bacteria Hyaline Casts Urine Mucus Ur Random Sodium 12/07/17 12/07/17 12/07/17 17:16 17:38 18:59 WBC RDW Neutrophils # Sodium 120 L* Potassium Chloride 89 L Carbon Dioxide 18 L BUN 21 H Creatinine 1.44 H Glucose 62 L POC Glucose (mg/dL) 64 L 64 L Osmolality Plasma Lactic Acid Dmitriy Uric Acid Total Bilirubin AST 443 H ALT 257 H Troponin I Total Protein 5.9 L Albumin 3.3 L Amylase Lipase Urine Appearance Urine Protein Ur Leukocyte Esterase Urine WBC Urine WBC Clumps Ur Squamous Epith Cells Amorphous Sediment Urine Bacteria Hyaline Casts Urine Mucus Ur Random Sodium 12/08/17 12/08/17 12/08/17 04:06 12:36 16:54 WBC RDW Neutrophils # Sodium 121 L 122 L Potassium Chloride 89 L 91 L Carbon Dioxide 17 L 19 L BUN 21 H 21 H Creatinine 1.50 H 1.46 H Glucose POC Glucose (mg/dL) 61 L Osmolality Plasma Lactic Acid Dmitriy Uric Acid Total Bilirubin AST 381 H ALT 264 H Troponin I Total Protein 5.7 L Albumin 3.1 L Amylase Lipase Urine Appearance Urine Protein Ur Leukocyte Esterase Urine WBC Urine WBC Clumps Ur Squamous Epith Cells Amorphous Sediment Urine Bacteria Hyaline Casts Urine Mucus Ur Random Sodium 12/08/17 17:34 WBC RDW Neutrophils # Sodium Potassium Chloride Carbon Dioxide BUN Creatinine Glucose POC Glucose (mg/dL) 62 L Osmolality Plasma Lactic Acid Dmitriy Uric Acid Total Bilirubin AST ALT Troponin I Total Protein Albumin Amylase Lipase Urine Appearance Urine Protein Ur Leukocyte Esterase Urine WBC Urine WBC Clumps Ur Squamous Epith Cells Amorphous Sediment Urine Bacteria Hyaline Casts Urine Mucus Ur Random Sodium Assessment and Plan (1) Hyponatremia Current Visit: Yes Status: Acute Code(s): E87.1 - HYPO-OSMOLALITY AND HYPONATREMIA SNOMED Code(s): 70654535 (2) Metabolic encephalopathy Current Visit: Yes Status: Acute Code(s): G93.41 - METABOLIC ENCEPHALOPATHY SNOMED Code(s): 09617868 (3) Anisocoria Current Visit: Yes Status: Acute Code(s): H57.02 - ANISOCORIA SNOMED Code( s): 35934308 (4) Hx of CABG Current Visit: No Status: Acute Code(s): Z95.1 - PRESENCE OF AORTOCORONARY BYPASS GRAFT SNOMED Code(s): 185868411 Plan: This patient is a 77-year-old female who was admitted to hospital on 12/06/2017 with symptoms of severe nausea vomiting for over 8 days. She was drinking water mainly due to her poor appetite and oral intake. She was brought into the emergency room where she was found to have evidence of severe hyponatremia. Initial serum sodium was 116. She was placed on 3% normal saline and admitted to the intensive care unit. She was switched over to 0.9 normal saline a day ago in her serum sodium today is 122. Patient was seen by nurse practitioner in the ICU today. She was noted to have evidence of unequal pupils. She was sent for a computed tomography scan of the brain today which was negative for any acute changes. Report and results are as noted above. The patient states she does have a history of having had cataract surgery. Her right pupil is showing some changes with some asymmetry. It is possible this may be a surgical pupil. Pupillary responses diminished as well bilaterally. She has no current symptoms of any severe headaches pain at all. She denies any focal weakness however there is a slight right pronator drift. Babinski is equivocal on the right. We have recommended the patient undergo an MRI/MRA of the brain for further evaluation of the anisocoria. She should continue slow correction of her severe hyponatremia. These to be closely monitored for quick correction of the hyponatremia to avoid CPM. We will continue to follow her progress closely during this admission. We will reevaluate the patient after completion of her MRI MRA. Overall prognosis at this time remains very guarded. Time with Patient: Greater than 30
[2017-12-09 04:42] LABS: Calcium 9.1 mg/dL (8.4-10.2); Potassium 5.2 mmol/L (3.5-5.1)
[2017-12-09 07:26] LABS: Glucose,Whole Blood 71 mg/dL (75-99)
[2017-12-09] MEDS: LEVOTHYROXINE 75 MCG TAB PO SCH (07:44)
[2017-12-09] MEDS: CARVEDILOL 6.25 MG TAB PO SCH ×2 (07:44→17:40)
[2017-12-09] MEDS: INSULIN ASPART 100 UNIT/ML 1 ML 10 ML VIAL SQ SCH ×4 (08:17→21:32)
--- NOTE | 2017-12-09 08:46 | ECHOF ---
Referral Reason:cad MEASUREMENTS -------- HEIGHT: 162.6 cm WEIGHT: 102.5 kg BP: 113/68 IVSd: 1.0 cm (0.6 - 1.1) LVIDd: 4.5 cm (3.9 - 5.3) LVPWd: 1.0 cm (0.6 - 1.1) IVSs: 1.5 cm LVIDs: 3.9 cm LVPWs: 1.1 cm Ao Diam: 3.0 cm (2.0 - 3.7) AV Cusp: 1.5 cm (1.5 - 2.6) LA Diam: 3.7 cm (2.7 - 3.8) MV EXCURSION: 12.495 mm (> 18.000) MV EF SLOPE: 73 mm/s (70 - 150) EPSS: 1.4 cm MV E Huseyin: 0.91 m/s MV DecT: 137 ms MV A Huseyin: 0.46 m/s MV E/A Ratio: 1.99 RAP: 5.00 mmHg RVSP: 44.45 mmHg FINDINGS -------- Sinus rhythm. This was a technically adequate study. The left ventricular size is normal. Left ventricular wall thickness is normal. There is severe g lobal hypokinesis of LV . Overall left ventricular systolic function is severely impaired with, an EF between 20 - 25 %. The right ventricle is normal in size and function. The left atrium is normal in size. The right atrium is normal in size. Aortic valve is trileaflet and is mildly thickened. The mitral valve leaflets are mildly thickened. Mild mitral annular calcification present. Modera [id number] mitral regurgitation is present. Severe tricuspid regurgitation present. There is mild pulmonary hypertension. The right ventricul ar systolic pressure, as measured by Doppler, is 44.45mmHg. Trace/mild (physiologic) pulmonic regurgitation. The aortic root size is normal. The pericardium is normal. CONCLUSIONS -------- 1. Sinus rhythm. 2. This was a technically adequate study. 3. The left ventricular size is normal. 4. Left ventricular wall thickness is normal. 5. There is severe global hypokinesis of LV . 6. Overall left ventricular systolic function is severely impaired with, an EF between 20 - 25 %. 7. The right ventricle is normal in size and function. 8. The left atrium is normal in size. 9. The right atrium is normal in size. 10. Aortic valve is trileaflet and is mildly thickened. 11. The mitral valve leaflets are mildly thickened. 12. Mild mitral annular calcification present. 13. [id number] mitral regurgitation is present. 14. Severe tricuspid regurgitation present. 15. There is mild pulmonary hypertension. 16. The right ventricular systolic pressure, as measured by Doppler, is 44.45mmHg. 17. Trace/mild (physiologic) pulmonic regurgitation. 18. The aortic root size is normal. 19. The pericardium is normal. PAD CUTTER: Guerline Huerta RDCS
[2017-12-09] MEDS ORDERED: PROPOFOL 100 ML IV ONE (09:37)
[2017-12-09] MEDS: CEFUROXIME 250 MG TAB PO SCH ×2 (09:57→21:33)
[2017-12-09] MEDS: SODIUM CHLORIDE TAB 1 GM TAB PO SCH ×4 (09:57→21:32)
[2017-12-09] MEDS: HEPARIN SODIUM,PORCINE 5,000 UNIT/ML 1 ML VIAL SQ SCH ×2 (09:57→21:32)
[2017-12-09] MEDS: ISOSORBIDE MONONITRATE ER 30 MG TAB.ER.24H PO SCH (09:58)
[2017-12-09] MEDS: ASPIRIN 81 MG PO SCH (09:58)
[2017-12-09] MEDS: TOPIRAMATE 25 MG TAB PO SCH ×2 (09:58→21:34)
[2017-12-09] MEDS: ALLOPURINOL 100 MG TAB PO SCH (09:58)
[2017-12-09] MEDS: SODIUM CHLORIDE 0.9% 1,000 ML IV SCH ×2 (09:58→17:39)
[2017-12-09 10:14] LABS: Albumin 3.3 g/dL (3.5-5.0); Calcium 8.8 mg/dL (8.4-10.2); Potassium 4.2 mmol/L (3.5-5.1); Total Protein 5.9 g/dL (6.3-8.2)
--- NOTE | 2017-12-09 10:29 | PN ---
PROGRESS NOTE Mrs. Marie is a 77-year-old female who presented with severe hyponatremia. She is somnolent, opens her eyes to verbal stimuli. She was confused earlier. Hemodynamically, she has been stable. She has been evaluated by Dr. Blake as well as followed by the nephrology service. She continued to be on aspirin, Coreg 6.25 mg twice a day, isosorbide mononitrate 30 mg daily. PHYSICAL EXAMINATION: Blood pressure 105/60 with the heart rate in the 80s. LUNGS: No wheezes. HEART: Regular rate and rhythm. S1, S2. No S3. No rub with a systolic murmur. ABDOMEN: Soft, obese, nontender. EXTREMITIES: No significant edema. LAB DATA: Lab data revealed sodium up to 124. BUN and creatinine 22 and 1.5. Potassium of 5.2. IMPRESSION: 1. Severe hyponatremia, improving. 2. Change in mental status with possible metabolic encephalopathy. Workup in progress. 3. History of hypertension. 4. Renal failure. 5. History of coronary artery disease. RECOMMENDATION: From the cardiac standpoint, she is stable. We will continue present therapy and follow her renal function. The patient at this time does not require any further cardiac workup. MMODL / IJN: [id number] /
--- NOTE | 2017-12-09 10:47 | P.PN ---
Subjective Progress Note Date: 12/09/17 Principal diagnosis: Acute hyponatremia This is a 77-year-old female, history of diabetes, gout, hypothyroidism, hypertension, depression, osteoarthritis, maintained on diuretics at home, patient presented to the ER with mostly 1 week history of weakness, nausea but no vomiting, no diarrhea, no abdominal pain. According to the ER physician she had multiple bouts of vomiting, but according the patient she did not actually vomit. He was just nauseated and she was experiencing dry heaves. Patient has been complaining of weakness and fatigue, headache no blurred vision no dizziness, no vomiting, no melena, no hematemesis, no dysuria, no frequency, no urgency. Upon evaluation in the ER, her sodium was noted to be 114. Patient was initially given 3% saline, and now she is on 0.9 normal saline. Sodium at this point is 119, potassium is 5.5, chloride is 86, anion gap is 15, BUN is 21 and creatinine is 1.55. Serum osmolality was 244 with urine osmolality of 485, and urine sodium less than 5. Patient was felt by nephrology that she may have hyponatremia with hypovolemia and low blood pressure, cortisol level was normal and thyroid profile was normal. Chest x-ray is relatively unremarkable, no evidence of malignancy or pneumonia noted on the chest x-ray. Patient was reevaluated today on 12/08/2017, feeling a bit better, however she had episodes of confusion last night and she was pulling her IV lines, she was also a bit agitated and restless.her sodium today is up to 121, rest of the labs were unremarkable, BUN is 21 creatinine is 1.50. Liver enzymes were also noted to be a bit elevated today.in by nephrology this morning, and it was felt the patient. Had acute kidney injury. On 12/09/2017 patient is seen in intensive care, she is currently awaiting a bed on the medical surgical unit. Remains stable, awake, alert, responding appropriately. On 2 l/min vision with O2 sat at 94%. Hemodynamically stable, afebrile. Lung sounds are clear chest rotation, no rhonchi wheezes or rales noted. Today's lab work reveal serum sodium 124, serum potassium 4.2, chloride is 91, B1 is 21, creatinine is 1.47. No episodes of confusion, agitation or seizures noted in the last 24 hours. No acute events overnight. Objective - Vital Signs Vital signs: Vital Signs Temp 98.1 F 12/09/17 08:00 Pulse 76 12/09/17 08:00 Resp 10 L 12/09/17 08:00 BP 110/71 12/09/17 08:00 Pulse Ox 94 L 12/09/17 08:00 Intake & Output 12/08/17 12/09/17 12/09/17 18:59 06:59 18:59 Intake Total 100 1000 Output Total 140 120 120 Balance -40 -120 880 Weight 110.7 kg 110.7 kg Intake: IV 100 1000 Sodium Chloride 0.9% 1, 100 1000 000 ml @ 100 mls/hr IV . Q10H [facility] Rx#:[id number] Output: Urine 140 120 120 Other: Voiding Method Indwelling Catheter Indwelling Catheter Indwelling Catheter - Exam Physical Exam: Revealed a 77-year-old female in no distress. HEENT:[Neck is supple.] [No neck masses.] [No thyromegaly.] [No JVD.] Chest: [Clear throughout, no crackles, no rhonchi, no wheezes.] Cardiac Exam: [Normal S1 and S2, no S3 gallop, no murmur.] Abdomen: [Soft, nontender, no megaly, no rebound, no guarding, normal bowel sounds.] Extremities: [No clubbing, no edema, no cyanosis.] Neurological Exam: [No focal neurologic deficit. Lymphatics: No lymphadenopathy Psychiatric: Normal mood affect and mental status exam.] - Labs CBC & Chem 7: 12/07/17 04:35 12/09/17 09:19 Labs: Abnormal Lab Results - Last 24 Hours (Table) 12/08/17 12/08/17 12/08/17 Range/Units 12:36 16:54 17:34 Sodium 122 L (137-145) mmol/L Potassium (3.5-5.1) mmol/L Chloride 91 L (98-107) mmol/L Carbon Dioxide 19 L (22-30) mmol/L BUN 21 H (7-17) mg/dL Creatinine 1.46 H (0.52-1.04) mg/dL Glucose (74-99) mg/dL POC Glucose (mg/dL) 61 L 62 L (75-99) mg/dL AST 381 H (14-36) U/L ALT 264 H (9-52) U/L Total Protein 5.7 L (6.3-8.2) g/dL Albumin 3.1 L (3.5-5.0) g/dL 12/08/17 12/09/17 12/09/17 Range/Units 22:07 03:37 07:24 Sodium 124 L (137-145) mmol/L Potassium 5.2 H (3.5-5.1) mmol/L Chloride 92 L (98-107) mmol/L Carbon Dioxide 20 L (22-30) mmol/L BUN 22 H (7-17) mg/dL Creatinine 1.50 H (0.52-1.04) mg/dL Glucose 61 L (74-99) mg/dL POC Glucose (mg/dL) 102 H 71 L (75-99) mg/dL AST (14-36) U/L ALT (9-52) U/L Total Protein (6.3-8.2) g/dL Albumin (3.5-5.0) g/dL 12/09/17 Range/Units 09:19 Sodium 124 L (137-145) mmol/L Potassium (3.5-5.1) mmol/L Chloride 91 L (98-107) mmol/L Carbon Dioxide (22-30) mmol/L BUN 21 H (7-17) mg/dL Creatinine 1.47 H (0.52-1.04) mg/dL Glucose (74-99) mg/dL POC Glucose (mg/dL) (75-99) mg/dL AST 311 H (14-36) U/L ALT 254 H (9-52) U/L Total Protein 5.9 L (6.3-8.2) g/dL Albumin 3.3 L (3.5-5.0) g/dL Microbiology - Last 24 Hours (Table) 12/07/17 15:20 Blood Culture - Preliminary Blood No Growth after 24 hours 12/07/17 03:00 Urine Culture - Final Urine,Catheterized Assessment and Plan Plan: Assessment: 1 Severe hyponatremia, hypoosmolar, hypovolemic, responding nicely to the present treatment plan including 3% saline followed by 0.9 normal saline at present. Paxil may be a contributing factor to the hyponatremia, hence I have recommended holding Paxil for now. Her serum TSH was normal, and her serum cortisol was also normal. 2 acute kidney injury from volume depletion and possibly related to Motrin. Renal profile shows slight improvement, BUN is 21, and creatinine is down to 1.47 on today's lab work 3 mild hyperkalemia secondary to acute kidney injury, improved, serum potassium is 4.2 on today's lab work 4 mildly elevated lactic acid, no clinical evidence of sepsis, will improve with fluids. 5 history of underlying coronary artery disease and previous CABG. 6 multiple comorbidities including osteoarthritis, benign essential hypertension , hypothyroidism, type 2 diabetes, history of coronary artery disease and previous CABG, and troponin leak on presentation. Recommendation: Sodium from this morning is 124, serum potassium has improved and is down to 4.2 today, renal profile is slightly improved. She remains stable, no episodes of agitation, confusion seizures overnight. He stable to go out of ICU to regular medical surgical floor once a bed becomes available. Continue holding Paxil. Continue IV fluids at 100 ML per hour of 0.9 normal saline. I performed a history & physical examination of the patient and discussed their management with my nurse practitioner, Rajwinder Pappas. I reviewed the nurse practitioner's note and agree with the documented findings and plan of care. Lung sounds are negative for rhonchi, rales or wheezes. The findings and the impression was discussed with the patient. I attest to the documentation by the nurse practitioner. Time with Patient: Less than 30
[2017-12-09 12:19] LABS: Glucose,Whole Blood 80 mg/dL (75-99)
[2017-12-09] MEDS ORDERED: FUROSEMIDE 10 MG/ML 4 ML VIAL IV STA (15:31)
[2017-12-09 17:37] LABS: Glucose,Whole Blood 137 mg/dL (75-99)
--- NOTE | 2017-12-09 17:45 | MR ---
EXAMINATION TYPE: MR angio head wo con DATE OF EXAM: 12/09/2017 COMPARISON: NONE HISTORY: An equal pupils. Headaches. TECHNIQUE: Time of flight images focusing on the [place] were performed without contrast. FINDINGS: There is arterial flow in the anterior middle and posterior cerebral arteries. There is art erial flow in the vertebrobasilar artery system. There is decreased diameter of the distal left verte bral artery. I see no evidence of aneurysm or neovascularity. There is no evidence of any significant luminal narrowing of the anterior middle and posterior cerebral arteries. IMPRESSION: There is possible atherosclerotic significant narrowing of the distal left vertebral artery. Otherwis e negative CT angiogram of the brain.
--- NOTE | 2017-12-09 17:49 | MR ---
EXAMINATION TYPE: MR brain wo con DATE OF EXAM: 12/09/2017 COMPARISON: NONE HISTORY: Standard multiplanar, multisequence MRI departmental protocol Multiplanar, multisequence images of the brain were acquired. Diffusion weighted imaging was performe d. FINDINGS: There is some diffuse cerebral cortical atrophy. There is no mass effect nor midline shift. There is no sign of intracranial hemorrhage. I see no evidence of acute cortical infarct. There is s ome mucosal thickening in the left maxillary sinus. The brainstem is intact. Sella turcica appears no rmal. Corpus callosum appears intact. IMPRESSION: Cerebral atrophy. Mild left maxillary sinusitis. No acute intracranial abnormality.
--- NOTE | 2017-12-09 18:39 | P.PN ---
Subjective Progress Note Date: 12/09/17 This patient is a 77-year-old female who was seen yesterday in the intensive care unit for evaluation of acute anisocoria. Her pupils were asymmetric. On further questioning yesterday of the patient in the ICU she has always had a larger right pupil size. 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 She was sent for MRI MRA of the brain today. Her MRI of the brain reveals cerebral atrophy. There was no evidence of any acute intracranial abnormality. Her MRA of the brain revealed narrowing of the distal left vertebral artery. No evidence of any aneurysm. We reviewed the results of the MRI/MRA today with the patient. She has had a previous study done a few years ago which was also negative. The patient seems to be more awake and alert. She is still having some evidence of mild congestive heart failure. She complains of some shortness of breath. Her urine output is also slightly low today. Nephrology has been contacted. We will await their further recommendations. Neurologically she remains intact and slightly more verbal today and responsive. We will continue to follow her progress closely during this admission. Objective - Vital Signs Vital signs: Vital Signs Temp 97.1 F L 12/09/17 15:00 Pulse 68 12/09/17 15:46 Resp 16 12/09/17 15:46 BP 107/63 12/09/17 15:00 Pulse Ox 97 12/09/17 15:00 Intake & Output 12/08/17 12/09/17 12/09/17 18:59 06:59 18:59 Intake Total 100 1800 Output Total 140 120 120 Balance -40 -120 1680 Weight 110.7 kg 110.7 kg Intake: IV 100 1800 Sodium Chloride 0.9% 1, 100 1800 000 ml @ 100 mls/hr IV . Q10H [facility] Rx#:[id number] Output: Urine 140 120 120 Other: Voiding Method Indwelling Catheter Indwelling Catheter Indwelling Catheter # Bowel Movements 0 - Exam Physical Examination: PHYSICAL EXAMINATION: Patient is resting comfortably in bed. VITAL SIGNS: Blood pressure is [107/63]. Heart rate is [68]. Respiration is [16] . Temperature is [97.1]. HEENT: Head is atraumatic, neck is supple, there were no carotid bruits. CHEST: Lungs are clear to auscultation and percussion. CARDIAC: S1, S2 normal rate and rhythm. There is no murmur. ABDOMEN: Soft and nontender. Bowel sounds are present. EXTREMITIES: There is no pedal edema. Peripheral pulses are present. Neurological examination: Patient has a nonfocal neurological examination. Her pupil asymmetry remains unchanged from yesterday. - Labs CBC & Chem 7: 12/07/17 04:35 12/09/17 09:19 Labs: Abnormal Lab Results - Last 24 Hours (Table) 12/08/17 12/08/17 12/08/17 Range/Units 16:54 17:34 22:07 Sodium (137-145) mmol/L Potassium (3.5-5.1) mmol/L Chloride (98-107) mmol/L Carbon Dioxide (22-30) mmol/L BUN (7-17) mg/dL Creatinine (0.52-1.04) mg/dL Glucose (74-99) mg/dL POC Glucose (mg/dL) 61 L 62 L 102 H (75-99) mg/dL AST (14-36) U/L ALT (9-52) U/L Total Protein (6.3-8.2) g/dL Albumin (3.5-5.0) g/dL 12/09/17 12/09/17 12/09/17 Range/Units 03:37 07:24 09:19 Sodium 124 L 124 L (137-145) mmol/L Potassium 5.2 H (3.5-5.1) mmol/L Chloride 92 L 91 L (98-107) mmol/L Carbon Dioxide 20 L (22-30) mmol/L BUN 22 H 21 H (7-17) mg/dL Creatinine 1.50 H 1.47 H (0.52-1.04) mg/dL Glucose 61 L (74-99) mg/dL POC Glucose (mg/dL) 71 L (75-99) mg/dL AST 311 H (14-36) U/L ALT 254 H (9-52) U/L Total Protein 5.9 L (6.3-8.2) g/dL Albumin 3.3 L (3.5-5.0) g/dL Microbiology - Last 24 Hours (Table) 12/07/17 15:20 Blood Culture - Preliminary Blood No Growth after 24 hours Assessment and Plan (1) Hyponatremia Current Visit: Yes Status: Acute Code(s): E87.1 - HYPO-OSMOLALITY AND HYPONATREMIA SNOMED Code(s): 68981328 (2) Metabolic encephalopathy Current Visit: Yes Status: Acute Code(s): G93.41 - METABOLIC ENCEPHALOPATHY SNOMED Code(s): 73738199 (3) Anisocoria Current Visit: Yes Status: Acute Code(s): H57.02 - ANISOCORIA SNOMED Code( s): 56598688 (4) Hx of CABG Current Visit: No Status: Acute Code(s): Z95.1 - PRESENCE OF AORTOCORONARY BYPASS GRAFT SNOMED Code(s): 601587343 Plan: This patient is a 77-year-old female who was seen yesterday in the intensive care unit for pupil asymmetry. She was sent for a MRI MRA of the brain results which are noted above. Both studies were negative for any acute process to cause pupillary dilatated. 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 Further questioning indicates she has had this finding in the past. We will continue to monitor her progress closely during this admission. She was transferred down out of the ICU today but has some findings of shortness of breath and mild congestive heart failure. Nephrology is been contacted. We will continue to monitor progress closely and follow her for her hyponatremia. Serum sodium today reveals her sodium to be 124. This is slowly improving over the last 2 days. We will continue to monitor her closely. MRI of the brain failed to reveal any evidence for CPM. Her overall prognosis at this time remains very guarded. We will continue to follow her progress closely.
--- NOTE | 2017-12-09 19:02 | XR ---
EXAMINATION TYPE: XR chest 1V portable DATE OF EXAM: 12/09/2017 COMPARISON: 12/06/2017 HISTORY: Short of breath TECHNIQUE: Single frontal view of the chest is obtained. FINDINGS: Heart is enlarged. There is mild pulmonary vascular congestion. There is slight blunting o f costophrenic angles. There are sternal wires. Thoracic aorta is atheromatous. IMPRESSION: There is evidence of mild heart failure. There are probably small pleural effusions. No significant change compared to last exam.
--- NOTE | 2017-12-09 19:41 | P.PN ---
Progress Note - Text Progress Note Date: 12/09/17 DATE OF SERVICE: 12/09/2017 PRESENTING COMPLAINT: Nausea and vomiting HISTORY OF PRESENT ILLNESS: 77-year-old female who's been having nausea vomiting for 5-6 days drinking lately water being extremely tired and rundown no fevers no headaches no abdominal pains no focal signs. Diagnostics revealed sodium of 118 admitted for the same and sent to the ICU with hypertonic saline. INTERVAL HISTORY: 12/09/2017: They moved to a chair much more alert today. No acute overnight events, vital signs stable. Neuro checks continue per neurology. Sodium is 124 today. Still has a bit of lethargy, pupils remain unequal in size. Ate about 25% of her breakfast, 1-2 person assist to get around. Last BM prior to admission. Transfer to medical surgical floor later today. 12/08/2017: Sitting up in bed, quite lethargic. Sodium responded well and today is 121. On exam patient's pupils were unequal, very lethargic, unable to respond to simple straightforward questions, concerns for stroke . Computed tomography scan of the brain completed negative for any acute intracranial process. Did not eat much breakfast today, currently on bed rest, last BM prior to admission. 12/07/2017 Patient evaluated in the ICU, sitting up in her bed appears comfortable, somewhat tired, did not sleep well. 3% saline has been shut off by nephrology, patient's receiving fluid bolus per nephrology. No complaints of chest pain and palpitations or muscle aches. Appetite remains low, ate only about 20% of her breakfast, up with assistance, last p.m. prior to admission. REVIEW OF SYSTEMS: Done for constitutional ,cardiovascular, GI, pulmonary with relevant findings as above. CURRENT MEDICATIONS Tylenol, Zyloprim, aspirin, Coreg, Ceftin, heparin subcu, insulin, NovoLog, Imdur, Lactinex, Synthroid, melatonin, biotin, Zofran, sodium chloride tablet, normal saline. Topamax PHYSICAL EXAM VITAL SIGNS: temperature 94.5, pulse 79, respiratory rate 18, blood pressure 98/53, oxygen saturation 92% on room air. GENERAL APPEARANCE: Sitting up in a chair at the bedside, tired, somewhat lethargic able to answer most questions. HENT: Normocephalic, oral cavity normal. External appearance of the ears/nose normal. EYES: Pupils unequal right pupil 6 mm, left pupil 3 mm.Conjunctiva normal. RESPIRATORY: Respiratory effort normal. Lungs diminished to auscultation. CARDIOVASCULAR: First and second sounds normal. No edema. ABDOMEN: Soft. Liver and spleen not palpable. No tenderness. No mass palpable. PSYCHIATRY: Alert and oriented 2-3, mood and affect normal. INVESTIGATIONS: LABS: Sodium 124, BUN 21, creatinine 1.47, AST 311, ALTs 254, Accu-Cheks noted. MRA of the brain: Possible atherosclerotic significant narrowing of the left distal vertebral artery, otherwise negative CT angiogram of the brain. Blood culture: 12/07/2017: No growth after 48 hours Urine culture: 12/07/2017: No growth after 18 hours: ASSESSMENT: -Acute mental status changes, unequal pupils, concerning for stroke -Severe hypoosmolar hyponatremia, some improvement -Acute urinary tract infection -Acute kidney injury from volume depletion and Motrin -Troponin leak likely from hemodynamic mismatch, no evidence of acute coronary syndrome. -Acute urinary tract infection which may precipitate the episode. -Coronary artery disease with prior history of coronary by artery bypass -Diabetes mellitus chronically on insulin, -hypothyroidism -Essential hypertension. -Primary osteoporosis and multiple joints, bilateral. -Chronic obstructive pulmonary disease is an ex-smoker. -Metabolic acidosis. -Obesity, body mass index 38.9. PLAN: Continue fluid restriction and salt tablets, IV fluids,check labs daily Continue antibiotic therapy for urinary tract infection. All neuro imaging does not reveal any acute process. we'll transfer patient to medical surgical floor later today. Plan of care discussed at the bedside. We will follow closely. PANTS PRESSER statement: Patient was seen and examined by nurse practitioner Cristiane Giron and all elements of the case discussed with attending Dr. Allen
[2017-12-09 21:03] LABS: Glucose,Whole Blood 158 mg/dL (75-99)
[2017-12-09] MEDS: SENNOSIDES 8.6 MG TAB PO SCH (21:37)
[2017-12-09] MEDS: POLYETHYLENE GLYCOL 3350 17 GM POWD.PACK PO SCH (21:37)
--- NOTE | 2017-12-10 00:02 | PN ---
PROGRESS NOTE Patient is seen for followup for hyponatremia. She was initially admitted to the hospital with a serum sodium of 115. She has been quite resistant. Her random urine sodium was low with a urine osmolality of around 400. The patient was also hypotensive and acute kidney injury and is being maintained on IV fluids. Initially, she did not respond to saline, however, fluids were increased and her serum sodium has slowly come up. The patient has been transferred out of the ICU. However, I was notified that her urine output has been quite low. The patient was given another bolus with normal saline this morning. Her blood pressure remained slightly on the lower side. EXAMINATION: Today, patient is sitting up in a chair. Blood pressure 98/53. She is afebrile. Heart rate about 82 per minute. Examination of the heart S1, S2. Examination lungs decreased breath sounds at bases. Abdomen is soft, nontender. Examination lower extremity shows chronic skin changes. No significant edema is noted. LAB: Show sodium 124, potassium 4.2, BUN 21, serum creatinine 1.47, AST 311, ALT 254. ASSESSMENT: 1. Hyponatremia initially hypovolemic, currently maintained on saline with chest x-ray showing mild congestive heart failure. I will give her Lasix, particularly in view of low urine output as well. 2. Acute kidney injury. Serum creatinine staying at about 1.4-1.5. Continue to monitor urine output. 3. Nausea slightly improved. PLAN: Continue with the sodium chloride tablets and the saline, Lasix x1 and if her respiratory status worsens, we will discontinue the IV fluids. Repeat labs in a.m. MMMIGUEL A / CLAYTON: [id number] /
[2017-12-10] MEDS: SODIUM CHLORIDE 0.9% 1,000 ML IV SCH ×4 (05:41→20:38)
[2017-12-10] MEDS: LEVOTHYROXINE 75 MCG TAB PO SCH (06:31)
[2017-12-10 07:24] LABS: Glucose,Whole Blood 132 mg/dL (75-99)
[2017-12-10] MEDS: INSULIN ASPART 100 UNIT/ML 1 ML 10 ML VIAL SQ SCH ×4 (07:52→21:46)
[2017-12-10] MEDS: CARVEDILOL 6.25 MG TAB PO SCH ×2 (07:52→17:58)
[2017-12-10] MEDS: CEFUROXIME 250 MG TAB PO SCH ×2 (07:53→21:45)
[2017-12-10] MEDS: SENNOSIDES 8.6 MG TAB PO SCH (07:53)
[2017-12-10] MEDS: HEPARIN SODIUM,PORCINE 5,000 UNIT/ML 1 ML VIAL SQ SCH ×2 (07:53→21:45)
[2017-12-10] MEDS: SODIUM CHLORIDE TAB 1 GM TAB PO SCH ×3 (07:53→21:45)
[2017-12-10] MEDS: TOPIRAMATE 25 MG TAB PO SCH ×2 (07:53→21:45)
[2017-12-10] MEDS: ALLOPURINOL 100 MG TAB PO SCH (07:53)
[2017-12-10] MEDS: ASPIRIN 81 MG PO SCH (07:53)
[2017-12-10] MEDS: ISOSORBIDE MONONITRATE ER 30 MG TAB.ER.24H PO SCH (07:53)
[2017-12-10 08:24] LABS: Calcium 9.3 mg/dL (8.4-10.2); Potassium 4.4 mmol/L (3.5-5.1)
[2017-12-10 09:21] LABS: Anisocytosis Slight; HCT 41.6 % (34.0-46.0); HGB 12.2 gm/dL (11.4-16.0); Hypochromasia Marked; MCH 25.8 pg (25.0-35.0); MCHC 29.3 g/dL (31.0-37.0); Mean Platelet Volume 10.2; Platelet Count 157 k/uL (150-450); Poikilocytosis Slight; RBC 4.72 m/uL (3.80-5.40); RDW 18.5 % (11.5-15.5); WBC 11.7 k/uL (3.8-10.6)
[2017-12-10 10:57] LABS: Lymphocytes # (M) 1.05 k/uL (1.0-4.8); Monocytes # (M) 0.35 k/uL (0-1.0); Neutrophils # (M) 10.41 k/uL (1.3-7.7); Neutrophils % (M) 89 %; Nucleated Red Blood Cells 0 /100 WBC (0-0); Total Cells Counted 200
[2017-12-10 10:58] LABS: Mixed Population RBC Present
[2017-12-10 10:59] LABS: Polychromasia Present
--- NOTE | 2017-12-10 11:48 | P.PN ---
Subjective Progress Note Date: 12/10/17 Principal diagnosis: Acute hyponatremia This is a 77-year-old female, history of diabetes, gout, hypothyroidism, hypertension, depression, osteoarthritis, maintained on diuretics at home, patient presented to the ER with mostly 1 week history of weakness, nausea but no vomiting, no diarrhea, no abdominal pain. According to the ER physician she had multiple bouts of vomiting, but according the patient she did not actually vomit. He was just nauseated and she was experiencing dry heaves. Patient has been complaining of weakness and fatigue, headache no blurred vision no dizziness, no vomiting, no melena, no hematemesis, no dysuria, no frequency, no urgency. Upon evaluation in the ER, her sodium was noted to be 114. Patient was initially given 3% saline, and now she is on 0.9 normal saline. Sodium at this point is 119, potassium is 5.5, chloride is 86, anion gap is 15, BUN is 21 and creatinine is 1.55. Serum osmolality was 244 with urine osmolality of 485, and urine sodium less than 5. Patient was felt by nephrology that she may have hyponatremia with hypovolemia and low blood pressure, cortisol level was normal and thyroid profile was normal. Chest x-ray is relatively unremarkable, no evidence of malignancy or pneumonia noted on the chest x-ray. Patient was reevaluated today on 12/08/2017, feeling a bit better, however she had episodes of confusion last night and she was pulling her IV lines, she was also a bit agitated and restless.her sodium today is up to 121, rest of the labs were unremarkable, BUN is 21 creatinine is 1.50. Liver enzymes were also noted to be a bit elevated today.in by nephrology this morning, and it was felt the patient. Had acute kidney injury. On 12/09/2017 patient is seen in intensive care, she is currently awaiting a bed on the medical surgical unit. Remains stable, awake, alert, responding appropriately. On 2 l/min vision with O2 sat at 94%. Hemodynamically stable, afebrile. Lung sounds are clear chest rotation, no rhonchi wheezes or rales noted. Today's lab work reveal serum sodium 124, serum potassium 4.2, chloride is 91, B1 is 21, creatinine is 1.47. No episodes of confusion, agitation or seizures noted in the last 24 hours. No acute events overnight. On 12/10/2017 patient is seen again on medical surgical floor. Her serum sodium is up to 129 today, up from 124 on 12/09/2017. Neurologically patient is lethargic, but arousable, does drift off back to sleep if not stimulated. lung sounds are clear, diminished. Patient has 2+ bilateral lower leg edema, yesterday she was given a dose of IV Lasix per nephrology in regards to low urine output. she is in positive balance, +2800 over the last 24 hours. Her IV fluids are still 0.9 normal saline at 100 ML per hour. currently on 2 L per nasal cannula with O2 sat in the 100%. Denies any dyspnea, cough or chest congestion. blood and urine culture show no growth. Renal profile is stable, with BUN of 19, and creatinine of 1.47. Objective - Vital Signs Vital signs: Vital Signs Temp 97.0 F L 12/10/17 07:00 Pulse 69 12/10/17 07:00 Resp 18 12/10/17 07:00 BP 142/58 12/10/17 07:00 Pulse Ox 100 12/10/17 07:00 Intake & Output 12/09/17 12/10/17 12/10/17 18:59 06:59 18:59 Intake Total 1800 1600 Output Total 120 395 Balance 1680 1205 Weight 110.7 kg Intake: IV 1800 Sodium Chloride 0.9% 1, 1800 000 ml @ 100 mls/hr IV . Q10H [facility] Rx#:[id number] Intake, IV Titration 1600 Amount Sodium Chloride 0.9% 1, 1600 000 ml @ 100 mls/hr IV . Q10H [facility] Rx#:[id number] Output: Urine 120 395 Other: Voiding Method Indwelling Catheter Indwelling Catheter Indwelling Catheter # Bowel Movements 0 - Exam Physical Exam: Revealed a 77-year-old female in no distress. somnolent, but arousable to stimuli. HEENT:[Neck is supple.] [No neck masses.] [No thyromegaly.] [No JVD.] Chest: [Clear throughout, no crackles, no rhonchi, no wheezes.] Cardiac Exam: [Normal S1 and S2, no S3 gallop, no murmur.] Abdomen: [Soft, nontender, no megaly, no rebound, no guarding, normal bowel sounds.] Extremities: [No clubbing, no edema, no cyanosis.] Neurological Exam: [No focal neurologic deficit. Lymphatics: No lymphadenopathy Psychiatric: Normal mood affect and mental status exam.] - Labs CBC & Chem 7: 12/10/17 07:34 12/10/17 07:34 Labs: Abnormal Lab Results - Last 24 Hours (Table) 12/09/17 12/09/17 12/10/17 Range/Units 17:29 21:01 07:16 WBC (3.8-10.6) k/uL MCHC (31.0-37.0) g/dL RDW (11.5-15.5) % Neutrophils # (Manual) (1.3-7.7) k/uL Sodium (137-145) mmol/L Chloride (98-107) mmol/L BUN (7-17) mg/dL Creatinine (0.52-1.04) mg/dL Glucose (74-99) mg/dL POC Glucose (mg/dL) 137 H 158 H 132 H (75-99) mg/dL 12/10/17 12/10/17 Range/Units 07:34 07:34 WBC 11.7 H (3.8-10.6) k/uL MCHC 29.3 L (31.0-37.0) g/dL RDW 18.5 H (11.5-15.5) % Neutrophils # (Manual) 10.41 H (1.3-7.7) k/uL Sodium 129 L (137-145) mmol/L Chloride 95 L (98-107) mmol/L BUN 19 H (7-17) mg/dL Creatinine 1.47 H (0.52-1.04) mg/dL Glucose 133 H (74-99) mg/dL POC Glucose (mg/dL) (75-99) mg/dL Microbiology - Last 24 Hours (Table) 12/07/17 15:20 Blood Culture - Preliminary Blood No Growth after 48 hours Assessment and Plan Plan: Assessment: 1 Severe hyponatremia, hypoosmolar, hypovolemic, responding nicely to the present treatment plan including 3% saline followed by 0.9 normal saline at present. Paxil may be a contributing factor to the hyponatremia, hence I have recommended holding Paxil for now. Her serum TSH was normal, and her serum cortisol was also normal. 2 acute kidney injury from volume depletion and possibly related to Motrin. Renal profile shows slight improvement, BUN is 21, and creatinine is down to 1.47 on today's lab work 3 mild hyperkalemia secondary to acute kidney injury, improved, serum potassium is 4.2 on today's lab work 4 mildly elevated lactic acid, no clinical evidence of sepsis, will improve with fluids. 5 history of underlying coronary artery disease and previous CABG. 6 multiple comorbidities including osteoarthritis, benign essential hypertension , hypothyroidism, type 2 diabetes, history of coronary artery disease and previous CABG, and troponin leak on presentation. Recommendation: Serum sodium is up to 129 today, up from 124 from 12/09/2017. Patient was given a dose of IV Lasix per nephrology yesterday, still remains in positive balance, there is significant swelling in bilateral lower extremities. 0.9 NS normal sinus at 100 ML per hour. Anticipate more diuretics today by nephrology. From our standpoint she denies any acute dyspnea, her oxygenation is stable on 2 L per nasal cannula. we will let nephrology continue treatment of her hyponatremia and acute kidney injury, we will see the patient on as- needed basis. Thank you for this consultation. I performed a history & physical examination of the patient and discussed their management with my nurse practitioner, Rajwinder Pappas. I reviewed the nurse practitioner's note and agree with the documented findings and plan of care. Lung sounds are negative for rhonchi, rales or wheezes. The findings and the impression was discussed with the patient. I attest to the documentation by the nurse practitioner. Time with Patient: Less than 30
[2017-12-10 12:34] LABS: Glucose,Whole Blood 117 mg/dL (75-99)
[2017-12-10] MEDS ORDERED: FUROSEMIDE 10 MG/ML 10 ML VIAL IV STA (12:52)
--- NOTE | 2017-12-10 12:58 | P.PN ---
Subjective Patient is seen in follow-up for hyponatremia and acute kidney injury. Sodium level is up to 129 today. Patient's currently resting in bed. She's having lunch. No vomiting or diarrhea. She is noted to have lower extremity edema. She has a Carpenter catheter in place and is voiding. Urine output is documented as 515 mL in the last 24 hours. Creatinine stable at 1.47 today. Vital signs are stable. General: The patient appeared well nourished and normally developed. HEENT: Head exam is unremarkable. Neck is without jugular venous distension. LUNGS: Lungs are clear to auscultation and percussion. Breath sounds decreased. HEART: Rate and Rhythm are regular. First and second heart sounds normal. No murmurs, rubs or gallops. ABDOMEN: Abdominal exam reveals normal bowel sounds. Non-tender and non- distended. No evidence of peritonitis. EXTREMITITES: 2+ edema. Objective - Vital Signs Vital signs: Vital Signs Temp 97.0 F L 12/10/17 07:00 Pulse 69 12/10/17 07:00 Resp 18 12/10/17 07:00 BP 142/58 12/10/17 07:00 Pulse Ox 100 12/10/17 07:00 Intake & Output 12/09/17 12/10/17 12/10/17 18:59 06:59 18:59 Intake Total 1800 1600 Output Total 120 395 Balance 1680 1205 Weight 110.7 kg Intake: IV 1800 Sodium Chloride 0.9% 1, 1800 000 ml @ 100 mls/hr IV . Q10H [facility] Rx#:[id number] Intake, IV Titration 1600 Amount Sodium Chloride 0.9% 1, 1600 000 ml @ 100 mls/hr IV . Q10H [facility] Rx#:[id number] Output: Urine 120 395 Other: Voiding Method Indwelling Catheter Indwelling Catheter Indwelling Catheter # Bowel Movements 0 - Labs CBC & Chem 7: 12/10/17 07:34 12/10/17 07:34 Labs: Abnormal Lab Results - Last 24 Hours (Table) 12/09/17 12/09/17 12/10/17 Range/Units 17:29 21:01 07:16 WBC (3.8-10.6) k/uL MCHC (31.0-37.0) g/dL RDW (11.5-15.5) % Neutrophils # (Manual) (1.3-7.7) k/uL Sodium (137-145) mmol/L Chloride (98-107) mmol/L BUN (7-17) mg/dL Creatinine (0.52-1.04) mg/dL Glucose (74-99) mg/dL POC Glucose (mg/dL) 137 H 158 H 132 H (75-99) mg/dL 12/10/17 12/10/17 12/10/17 Range/Units 07:34 07:34 12:33 WBC 11.7 H (3.8-10.6) k/uL MCHC 29.3 L (31.0-37.0) g/dL RDW 18.5 H (11.5-15.5) % Neutrophils # (Manual) 10.41 H (1.3-7.7) k/uL Sodium 129 L (137-145) mmol/L Chloride 95 L (98-107) mmol/L BUN 19 H (7-17) mg/dL Creatinine 1.47 H (0.52-1.04) mg/dL Glucose 133 H (74-99) mg/dL POC Glucose (mg/dL) 117 H (75-99) mg/dL Microbiology - Last 24 Hours (Table) 12/07/17 15:20 Blood Culture - Preliminary Blood No Growth after 48 hours Assessment and Plan Plan: Assessment: #1. Hyponatremia which was initially hypovolemic in nature. Now she is hypervolemic. Sodium level is improved to 129 today. She did receive 1 dose of IV Lasix yesterday. TSH and cortisol normal. #2. Nonoliguric acute kidney injury secondary to cardiorenal syndrome. Creatinine stable at 1.47 today. #3. Volume overload. #4. Systolic CHF ejection fraction of 20-25%. #5. Chronic kidney disease stage III with baseline creatinine in the range of 1 -1.2. Etiology is likely nephrosclerosis and cardiorenal syndrome. Plan: I will decrease rate of normal saline to 75 mL an hour. I will decrease salt tabs to 2 g 3 times daily. Lasix 60 mg IV once today. Maintain 1200 mL fluid restriction. Repeat electrolytes in the morning.
[2017-12-10 17:46] LABS: Glucose,Whole Blood 214 mg/dL (75-99)
[2017-12-10] MEDS: ONDANSETRON 4 MG/2 ML VIAL IVP PRN (19:02)
--- NOTE | 2017-12-10 19:29 | P.PN ---
Progress Note - Text Progress Note Date: 12/10/17 DATE OF SERVICE: 12/10/2017 PRESENTING COMPLAINT: Nausea and vomiting HISTORY OF PRESENT ILLNESS: 77-year-old female who's been having nausea vomiting for 5-6 days drinking lately water being extremely tired and rundown no fevers no headaches no abdominal pains no focal signs. Diagnostics revealed sodium of 118 admitted for the same and sent to the ICU with hypertonic saline. INTERVAL HISTORY: 12/10/2017: Sitting up in a chair opens eyes to voice and her name. Remains quite lethargic. No acute overnight events, vital signs are stable. Sodium is much improved. Pupils are unequal in size. Eating about 25% of her meals she is a 1 -2 person assist to get around. Last BM or to admission, cathartics on board. 12/09/2017: Patient moved to a chair much more responsive today. No acute overnight events , vital signs stable. Neuro checks continue per neurology. Sodium is 124 today. Still has a bit of lethargy, pupils remain unequal in size. Ate about 25 % of her breakfast, 1-2 person assist to get around. Last BM prior to admission. Transfer to medical surgical floor later today. 12/08/2017: Sitting up in bed, quite lethargic. Sodium responded well and today is 121. On exam patient's pupils were unequal, very lethargic, unable to respond to simple straightforward questions, concerns for stroke . Computed tomography scan of the brain completed negative for any acute intracranial process. Did not eat much breakfast today, currently on bed rest, last BM prior to admission. 12/07/2017 Patient evaluated in the ICU, sitting up in her bed appears comfortable, somewhat tired, did not sleep well. 3% saline has been shut off by nephrology, patient's receiving fluid bolus per nephrology. No complaints of chest pain and palpitations or muscle aches. Appetite remains low, ate only about 20% of her breakfast, up with assistance, last p.m. prior to admission. REVIEW OF SYSTEMS: Done for constitutional ,cardiovascular, GI, pulmonary with relevant findings as above. CURRENT MEDICATIONS Tylenol, Zyloprim, aspirin, Coreg, Ceftin, heparin subcu, insulin, NovoLog, Imdur, Synthroid, melatonin, Zofran, MiraLAX sodium chloride tablet, normal saline. Topamax PHYSICAL EXAM VITAL SIGNS: Temperature 97.0, pulse 69, respiratory rate 18, blood pressure 142/58, oxygen saturation 100% on 2 L. GENERAL APPEARANCE: Sitting up in a chair at the bedside, tired, somewhat lethargic able to answer most questions. HENT: Normocephalic, oral cavity normal, external appearance of ears/nose normal. EYES:Pupils unequal right pupil 4 mm, left pupil 2 mm. Conjunctiva normal RESPIRATORY: Respiratory effort normal. Lungs diminished to auscultation. CARDIOVASCULAR: First and second sounds normal. No edema. ABDOMEN: Soft. Liver and spleen not palpable. No tenderness. No mass palpable. PSYCHIATRY: Alert and oriented 2-3, mood and affect lethargic. INVESTIGATIONS: LABS: White blood cell count 11.7, sodium 129, chloride 95, BUN 19, creatinine 1.47 Accu-Cheks noted. Blood culture: 12/07/2017: No growth after 48 hours Urine culture: 12/07/2017: No growth after 18 hours: ASSESSMENT: -Acute mental status changes, unequal pupils slow to respond -Severe hypoosmolar hyponatremia, improving -Acute urinary tract infection improving -Acute kidney injury from volume depletion and Motrin, slow to respond -Troponin leak likely from hemodynamic mismatch, no evidence of acute coronary syndrome. -Acute urinary tract infection which may precipitate the episode. -Coronary artery disease with prior history of coronary by artery bypass -Diabetes mellitus chronically on insulin, -hypothyroidism -Essential hypertension. -Primary osteoporosis and multiple joints, bilateral. -Chronic obstructive pulmonary disease is an ex-smoker. -Metabolic acidosis. -Obesity, body mass index 38.9. PLAN: Neurology has ruled out a stroke or other acute process. Patient has a history of cataract surgery and as such has a history of slightly enlarged right pupil. Continue fluid restriction 1200 mL and salt tablets, IV fluids at 75 mL an hour, Lasix 60 mg IV for 1 dose today. check labs daily Continue antibiotic therapy for urinary tract infection. Plan of care discussed at the bedside. We will follow closely. RAIL ENGINEER statement: Patient was seen and examined by nurse practitioner Cristiane Giron and all elements of the case discussed with attending Dr. Allen
--- NOTE | 2017-12-10 19:37 | P.PN ---
Subjective Progress Note Date: 12/10/17 This patient is a 77-year-old female who was initially seen in the intensive care unit for evaluation of acute anisocoria. Her pupils were asymmetric. On further questioning of the patient in the ICU 2 days ago she has always had a larger right pupil size. 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 She was sent for MRI /MRA of the brain yesterday. Her MRI of the brain reveals cerebral atrophy. There was no evidence of any acute intracranial abnormality. Her MRA of the brain revealed narrowing of the distal left vertebral artery. No evidence of any aneurysm. We reviewed the results of the MRI/MRA today with the patient. Her daughter was also at bedside and she was updated on the MRI/MRA results. She has had a previous study done a few years ago which was also negative. The patient seems to be more awake and alert. She is still having some evidence of mild congestive heart failure. She complains of some shortness of breath. Her urine output is also slightly low today. Nephrology has been contacted. Patient severe hyponatremia is significantly improved today. Her serum sodium is 129. We will await their further recommendations from nephrology. Neurologically she remains intact and slightly more verbal today and responsive. We will continue to follow her progress closely during this admission. Objective - Vital Signs Vital signs: Vital Signs Temp 97.2 F L 12/10/17 15:00 Pulse 66 12/10/17 15:00 Resp 19 12/10/17 15:00 BP 105/56 12/10/17 15:00 Pulse Ox 98 12/10/17 15:00 Intake & Output 12/09/17 12/10/17 12/10/17 18:59 06:59 18:59 Intake Total 1800 1600 Output Total 120 395 Balance 1680 1205 Weight 110.7 kg Intake: IV 1800 Sodium Chloride 0.9% 1, 1800 000 ml @ 100 mls/hr IV . Q10H [facility] Rx#:[id number] Intake, IV Titration 1600 Amount Sodium Chloride 0.9% 1, 1600 000 ml @ 100 mls/hr IV . Q10H [facility] Rx#:[id number] Output: Urine 120 395 Other: Voiding Method Indwelling Catheter Indwelling Catheter Indwelling Catheter # Bowel Movements 0 - Exam Physical Examination: PHYSICAL EXAMINATION: Patient is resting comfortably in bed. VITAL SIGNS: Blood pressure is [105/56]. Heart rate is [67]. Respiration is [19] . Temperature is [97.2]. HEENT: Head is atraumatic, neck is supple, there were no carotid bruits. CHEST: Lungs are clear to auscultation and percussion. CARDIAC: S1, S2 normal rate and rhythm. There is no murmur. ABDOMEN: Soft and nontender. Bowel sounds are present. EXTREMITIES: There is no pedal edema. Peripheral pulses are present. Neurological examination: Patient has a nonfocal neurological examination. Her pupil asymmetry remains unchanged from yesterday. - Labs CBC & Chem 7: 12/10/17 07:34 12/10/17 07:34 Labs: Abnormal Lab Results - Last 24 Hours (Table) 12/09/17 12/10/17 12/10/17 Range/Units 21:01 07:16 07:34 WBC 11.7 H (3.8-10.6) k/uL MCHC 29.3 L (31.0-37.0) g/dL RDW 18.5 H (11.5-15.5) % Neutrophils # (Manual) 10.41 H (1.3-7.7) k/uL Sodium (137-145) mmol/L Chloride (98-107) mmol/L BUN (7-17) mg/dL Creatinine (0.52-1.04) mg/dL Glucose (74-99) mg/dL POC Glucose (mg/dL) 158 H 132 H (75-99) mg/dL 12/10/17 12/10/17 12/10/17 Range/Units 07:34 12:33 17:05 WBC (3.8-10.6) k/uL MCHC (31.0-37.0) g/dL RDW (11.5-15.5) % Neutrophils # (Manual) (1.3-7.7) k/uL Sodium 129 L (137-145) mmol/L Chloride 95 L (98-107) mmol/L BUN 19 H (7-17) mg/dL Creatinine 1.47 H (0.52-1.04) mg/dL Glucose 133 H (74-99) mg/dL POC Glucose (mg/dL) 117 H 214 H (75-99) mg/dL Microbiology - Last 24 Hours (Table) 12/07/17 15:20 Blood Culture - Preliminary Blood No Growth after 72 hours Assessment and Plan (1) Hyponatremia Current Visit: Yes Status: Acute Code(s): E87.1 - HYPO-OSMOLALITY AND HYPONATREMIA SNOMED Code(s): 96755485 (2) Metabolic encephalopathy Current Visit: Yes Status: Acute Code(s): G93.41 - METABOLIC ENCEPHALOPATHY SNOMED Code(s): 09548523 (3) Anisocoria Current Visit: Yes Status: Acute Code(s): H57.02 - ANISOCORIA SNOMED Code( s): 34271373 (4) Hx of CABG Current Visit: No Status: Acute Code(s): Z95.1 - PRESENCE OF AORTOCORONARY BYPASS GRAFT SNOMED Code(s): 970604850 Plan: This patient is a 77-year-old female initially admitted to the intensive care unit for severe hyponatremia and acute kidney injury. She has been treated for the severe hyponatremia and her serum sodium today is much improved at 129. Neurology was consulted due to unequal pupil size. She has a history of slightly enlarged right pupil possibly secondary to cataract surgery in the past. She did undergo MRI/MRA of the brain both of which came back negative for any acute findings. Patient continues to show improvement in her mental status as well. Her condition is consistent with a metabolic encephalopathy secondary to the hyponatremia. Her serum sodium is noted today is 129. No further changes in her overall neurological status. Case was discussed today at length with the patient's daughter at bedside. She was updated on all of the test results thus far including MRI MRA results. We will await further recommendations from the other specialists Center monitoring her condition closely. Overall prognosis at this time remains guarded.
[2017-12-10 20:48] LABS: Glucose,Whole Blood 132 mg/dL (75-99)
--- NOTE | 2017-12-10 21:42 | PN ---
PROGRESS NOTE DATE OF SERVICE: December 10, 2017. ATTENDING NOTE: The patient seen and examined by me. I discussed with nurse practitioner, Ohdyana. Sitting up on a chair, tired. Nurse informed me patient is very picky about eating and does drink some shakes. Sodium is coming up. PHYSICAL EXAMINATION: On examination, afebrile, pulse 60, respirations 16, blood pressure 105/56, pulse ox 98% on 2 L. Lungs fair entry, tired, lethargic, minimal edema. White count 11.7, hemoglobin 12.2, sodium 129, BUN 19, creatinine 1.47. ASSESSMENT: Hypoosmolar hyponatremia with some improvement. Initially hypovolemic shock. 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 Blake. Note the patient's brain MRI and brain MRA is only showing some chronic changes. MMODL / IJN: [id number] /
--- NOTE | 2017-12-11 05:18 | PN ---
PROGRESS NOTE DATE OF SERVICE: 12/09/2017 ATTENDING NOTE: Patient seen and examined by me yesterday on 12/09/17. I discussed with nurse practitioner, Ms. Giron. Patient admitted with hyponatremia. Oral intake not good. Tired, lethargic, eating about 25%. ON EXAMINATION: Blood pressure 98/53, pulse ox 92% on room air. Lying in bed, tired-appearing, dry mucous membrane. Metabolic encephalopathy, abnormalities. Severe hyposmolar hyponatremia with hypovolemia. Multiple other medical problems. The patient is rather slow to respond. Follow closely with Nephrology. Neuro workup was done. MRI/MRA does not show any acute stroke. MMODL / IJN: [id number] /
[2017-12-11] MEDS: SODIUM CHLORIDE 0.9% 1,000 ML IV SCH ×2 (05:58→15:24)
[2017-12-11] MEDS: LEVOTHYROXINE 75 MCG TAB PO SCH (06:20)
[2017-12-11 07:18] LABS: Glucose,Whole Blood 123 mg/dL (75-99)
[2017-12-11] MEDS: INSULIN ASPART 100 UNIT/ML 1 ML 10 ML VIAL SQ SCH ×4 (07:19→21:19)
[2017-12-11] MEDS: ASPIRIN 81 MG PO SCH (08:07)
[2017-12-11] MEDS: SENNOSIDES 8.6 MG TAB PO SCH (08:07)
[2017-12-11] MEDS: CEFUROXIME 250 MG TAB PO SCH ×2 (08:07→21:19)
[2017-12-11] MEDS: CARVEDILOL 6.25 MG TAB PO SCH ×2 (08:07→18:00)
[2017-12-11] MEDS: ISOSORBIDE MONONITRATE ER 30 MG TAB.ER.24H PO SCH (08:07)
[2017-12-11] MEDS: SODIUM CHLORIDE TAB 1 GM TAB PO SCH ×3 (08:07→21:19)
[2017-12-11] MEDS: HEPARIN SODIUM,PORCINE 5,000 UNIT/ML 1 ML VIAL SQ SCH ×2 (08:07→21:19)
[2017-12-11] MEDS: ALLOPURINOL 100 MG TAB PO SCH (08:07)
[2017-12-11] MEDS: TOPIRAMATE 25 MG TAB PO SCH ×2 (08:07→21:19)
[2017-12-11 08:37] LABS: Calcium 9.1 mg/dL (8.4-10.2); Magnesium 1.5 mg/dL (1.6-2.3); Potassium 4.2 mmol/L (3.5-5.1)
[2017-12-11 08:44] LABS: Anisocytosis Slight; Basophils % (A) 0 %; Eosinophils # (A) 0.2 k/uL (0-0.7); Eosinophils % (A) 2 %; HCT 41.3 % (34.0-46.0); HGB 12.2 gm/dL (11.4-16.0); Hypochromasia Marked; Lymphocytes # (A) 1.1 k/uL (1.0-4.8); Lymphocytes % (A) 11 %; MCH 26.1 pg (25.0-35.0); MCHC 29.5 g/dL (31.0-37.0); MCV 88.4 fL (80.0-100.0); Mean Platelet Volume 8.3; Monocytes # (A) 0.6 k/uL (0-1.0); Monocytes % (A) 6 %; Neutrophils # (A) 8.1 k/uL (1.3-7.7); Neutrophils % (A) 80 %; Platelet Count 166 k/uL (150-450); Poikilocytosis Slight; RBC 4.67 m/uL (3.80-5.40); RDW 18.5 % (11.5-15.5); WBC 10.2 k/uL (3.8-10.6)
[2017-12-11 09:41] LABS: Polychromasia Present
[2017-12-11 12:32] LABS: Glucose,Whole Blood 144 mg/dL (75-99)
[2017-12-11] MEDS: MAGNESIUM SULFATE-D5W PMX 1 GM in DEXTROSE/WATER 1 100ML.BAG IVPB SCH ×2 (14:01→15:24)
[2017-12-11] MEDS ORDERED: FUROSEMIDE 10 MG/ML 10 ML VIAL IV STA (14:32)
--- NOTE | 2017-12-11 14:34 | P.PN ---
Subjective Patient is seen in follow-up for hyponatremia and acute kidney injury. Sodium level is up to 131 today. Patient's currently resting in bed. She's more tired today. No vomiting or diarrhea. She is noted to have lower extremity edema. She has a Carpenter catheter in place and is voiding. Urine output is documented as 900 mL in the last 24 hours. Creatinine improved to 1.31 today. Vital signs are stable. General: The patient appeared well nourished and normally developed. HEENT: Head exam is unremarkable. Neck is without jugular venous distension. LUNGS: Lungs are clear to auscultation and percussion. Breath sounds decreased. HEART: Rate and Rhythm are regular. First and second heart sounds normal. No murmurs, rubs or gallops. ABDOMEN: Abdominal exam reveals normal bowel sounds. Non-tender and non- distended. No evidence of peritonitis. EXTREMITITES: 2+ edema. Objective - Vital Signs Vital signs: Vital Signs Temp 97.0 F L 12/11/17 06:23 Pulse 70 12/11/17 06:23 Resp 16 12/11/17 06:23 BP 112/77 12/11/17 06:23 Pulse Ox 98 12/11/17 06:23 Intake & Output 12/10/17 12/11/17 12/11/17 18:59 06:59 18:59 Intake Total 550 Output Total 550 350 Balance -550 200 Weight 117 kg Intake: Oral 550 Output: Urine 550 350 Other: Voiding Method Indwelling Catheter Indwelling Catheter Indwelling Catheter # Voids 1 - Labs CBC & Chem 7: 12/11/17 07:19 12/11/17 07:19 Labs: Abnormal Lab Results - Last 24 Hours (Table) 12/10/17 12/10/17 12/11/17 Range/Units 17:05 20:45 06:52 MCHC (31.0-37.0) g/dL RDW (11.5-15.5) % Neutrophils # (1.3-7.7) k/uL Sodium (137-145) mmol/L Carbon Dioxide (22-30) mmol/L BUN (7-17) mg/dL Creatinine (0.52-1.04) mg/dL Glucose (74-99) mg/dL POC Glucose (mg/dL) 214 H 132 H 123 H (75-99) mg/dL Magnesium (1.6-2.3) mg/dL 12/11/17 12/11/17 12/11/17 Range/Units 07:19 07:19 12:28 MCHC 29.5 L (31.0-37.0) g/dL RDW 18.5 H (11.5-15.5) % Neutrophils # 8.1 H (1.3-7.7) k/uL Sodium 131 L (137-145) mmol/L Carbon Dioxide 20 L (22-30) mmol/L BUN 18 H (7-17) mg/dL Creatinine 1.31 H (0.52-1.04) mg/dL Glucose 119 H (74-99) mg/dL POC Glucose (mg/dL) 144 H (75-99) mg/dL Magnesium 1.5 L (1.6-2.3) mg/dL Microbiology - Last 24 Hours (Table) 12/07/17 15:20 Blood Culture - Preliminary Blood No Growth after 72 hours Assessment and Plan Plan: Assessment: #1. Hyponatremia which was initially hypovolemic in nature. Now she is hypervolemic. Sodium level is improved to 131 today. She did receive 1 dose of IV Lasix yesterday. TSH and cortisol normal. #2. Nonoliguric acute kidney injury secondary to cardiorenal syndrome. Creatinine improved to 1.31 today. #3. Volume overload. #4. Systolic CHF ejection fraction of 20-25%. #5. Chronic kidney disease stage III with baseline creatinine in the range of 1 -1.2. Etiology is likely nephrosclerosis and cardiorenal syndrome. #6. Metabolic acidosis secondary to acute kidney injury. #7. Hypomagnesemia due to diuresis. Plan: I will decrease rate of normal saline to 50 mL an hour. I will decrease salt tabs to 1 g 3 times daily. Lasix 60 mg IV once today. Maintain 1200 mL fluid restriction. Repeat electrolytes in the morning. Continue to monitor renal function and urine output. Replace magnesium. 2 g IV today.
[2017-12-11 17:23] LABS: Glucose,Whole Blood 201 mg/dL (75-99)
--- NOTE | 2017-12-11 17:27 | P.PN ---
Progress Note - Text Progress Note Date: 12/11/17 DATE OF SERVICE: 12/11/2017 PRESENTING COMPLAINT: Nausea and vomiting HISTORY OF PRESENT ILLNESS: 77-year-old female who's been having nausea vomiting for 5-6 days drinking lately water being extremely tired and rundown no fevers no headaches no abdominal pains no focal signs. Diagnostics revealed sodium of 118 admitted for the same and sent to the ICU with hypertonic saline. INTERVAL HISTORY: 12/11/2017: Sitting up in the bed opens eyes to her name and to voice. Remains quite lethargic. No acute overnight events, vital signs are stable. Received 2 doses of Lasix, urine output was about a liter. Appetite is poor, barely eating 25% of her meals she is a 1-2 person assist to get around. Last BM prior to admission. 12/10/2017: Sitting up in a chair opens eyes to voice and her name. Remains quite lethargic. No acute overnight events, vital signs are stable. Sodium is much improved. Pupils are unequal in size. Eating about 25% of her meals she is a 1 -2 person assist to get around. Last BM or to admission, cathartics on board. 12/09/2017: Patient moved to a chair much more responsive today. No acute overnight events , vital signs stable. Neuro checks continue per neurology. Sodium is 124 today. Still has a bit of lethargy, pupils remain unequal in size. Ate about 25 % of her breakfast, 1-2 person assist to get around. Last BM prior to admission. Transfer to medical surgical floor later today. 12/08/2017: Sitting up in bed, quite lethargic. Sodium responded well and today is 121. On exam patient's pupils were unequal, very lethargic, unable to respond to simple straightforward questions, concerns for stroke . Computed tomography scan of the brain completed negative for any acute intracranial process. Did not eat much breakfast today, currently on bed rest, last BM prior to admission. 12/07/2017 Patient evaluated in the ICU, sitting up in her bed appears comfortable, somewhat tired, did not sleep well. 3% saline has been shut off by nephrology, patient's receiving fluid bolus per nephrology. No complaints of chest pain and palpitations or muscle aches. Appetite remains low, ate only about 20% of her breakfast, up with assistance, last p.m. prior to admission. REVIEW OF SYSTEMS: Done for constitutional ,cardiovascular, GI, pulmonary with relevant findings as above. CURRENT MEDICATIONS Tylenol, Zyloprim, aspirin, Coreg, Ceftin, heparin subcu, insulin, NovoLog, Imdur, Synthroid, melatonin, Zofran, MiraLAX sodium chloride tablet, normal saline. Topamax PHYSICAL EXAM VITAL SIGNS: Temperature 97.0, pulse 70, respiratory rate 16, blood pressure 112/77, oxygen saturation 98% on 2 L GENERAL APPEARANCE: Sitting up in the bed, tired, somewhat lethargic able to answer some questions. HENT: Normocephalic, cavity normal, external appearance of ears/nose normal. EYES:Pupils unequal right pupil 3 mm, left pupil 2 mm. Conjunctiva normal RESPIRATORY: Respiratory effort normal. Lungs diminished to auscultation. CARDIOVASCULAR: First and second sounds normal. No edema. ABDOMEN: Soft. Liver and spleen not palpable. No tenderness. No mass palpable. PSYCHIATRY: Alert and oriented 2-3, mood and affect lethargic. INVESTIGATIONS: LABS: Sodium 131, carbon dioxide 20, BUN 18, creatinine 1.31 Blood culture: 12/07/2017: No growth after 48 hours Urine culture: 12/07/2017: No growth after 18 hours: ASSESSMENT: -Acute mental status changes,anisocoria, slow to respond -Severe hypoosmolar hyponatremia, with hypovolemia, improving -Hypomagnesemia secondary to diuresis. -Acute urinary tract infection improving -Acute kidney injury from volume depletion and cardiorenal syndrome and Motrin, slow to respond -Chronic kidney disease stage III with baseline creatinine in the range of 1- 1.2 likely due to nephrosclerosis and cardiorenal syndrome. -Troponin leak likely from hemodynamic mismatch, no evidence of acute coronary syndrome. -Acute urinary tract infection which may precipitate the episode. -Coronary artery disease with prior history of coronary by artery bypass -Diabetes mellitus chronically on insulin, -hypothyroidism -Essential hypertension. -Primary osteoporosis and multiple joints, bilateral. -Chronic obstructive pulmonary disease is an ex-smoker. -Metabolic acidosis. -Obesity, body mass index 38.9. PLAN: Continues to be lethargic but is willing to participate in activities. Continue fluid restriction 1200 mL and salt tablets, IV fluids at 50 mL an hour , check labs daily Continue antibiotic therapy for urinary tract infection. Plan of care discussed at the bedside. We will follow closely. HOME BASED ASSISTANT statement: Patient was seen and examined by nurse practitioner Cristiane Giron and all elements of the case discussed with attending Dr. Allen
--- NOTE | 2017-12-11 19:51 | PN ---
PROGRESS NOTE DATE OF SERVICE: 12/11/2017 ATTENDING NOTE: This patient was seen and examined by me. I discussed the case with the nurse practitioner Ms. Giron. Patient was admitted with hyponatremia, hypovolemia. She is not eating much, rather lethargic. Does answer questions. On examination, temperature 97, pulse 70, respiration 16, blood pressure 112/77, pulse ox 98% on 2 L. Lungs have decreased breath sounds. Lethargic, arousable. Does answer questions. INVESTIGATIONS: Sodium 131, BUN 18, creatinine 1.31. ASSESSMENT: 1. Acute metabolic encephalopathy. 2. Hyponatremia, improving. PLAN: Continue medication and treatment plan. Continue fluid restriction. Follow with Nephrology. Prognosis guarded. MMODL / IJN: [id number] /
[2017-12-11 21:16] LABS: Glucose,Whole Blood 195 mg/dL (75-99)
[2017-12-11] MEDS: POLYETHYLENE GLYCOL 3350 17 GM POWD.PACK PO SCH (21:19)
[2017-12-12] MEDS: SODIUM CHLORIDE 0.9% 1,000 ML IV SCH (05:14)
[2017-12-12] MEDS: LEVOTHYROXINE 75 MCG TAB PO SCH (06:36)
[2017-12-12 07:28] LABS: Glucose,Whole Blood 114 mg/dL (75-99)
[2017-12-12] MEDS: INSULIN ASPART 100 UNIT/ML 1 ML 10 ML VIAL SQ SCH ×4 (07:42→21:27)
[2017-12-12 08:29] LABS: Calcium 9.5 mg/dL (8.4-10.2)
[2017-12-12 08:30] LABS: Potassium 4.9 mmol/L (3.5-5.1)
[2017-12-12] MEDS: TOPIRAMATE 25 MG TAB PO SCH ×2 (08:30→20:31)
[2017-12-12] MEDS: CARVEDILOL 6.25 MG TAB PO SCH ×2 (08:30→17:51)
[2017-12-12] MEDS: SODIUM CHLORIDE TAB 1 GM TAB PO SCH ×2 (08:30→20:32)
[2017-12-12] MEDS: ASPIRIN 81 MG PO SCH (08:30)
[2017-12-12] MEDS: ISOSORBIDE MONONITRATE ER 30 MG TAB.ER.24H PO SCH (08:30)
[2017-12-12] MEDS: HEPARIN SODIUM,PORCINE 5,000 UNIT/ML 1 ML VIAL SQ SCH ×2 (08:30→20:31)
[2017-12-12] MEDS: SENNOSIDES 8.6 MG TAB PO SCH (08:30)
[2017-12-12] MEDS: CEFUROXIME 250 MG TAB PO SCH ×2 (08:31→20:31)
[2017-12-12] MEDS: ALLOPURINOL 100 MG TAB PO SCH (08:31)
[2017-12-12] MEDS ORDERED: FUROSEMIDE 10 MG/ML 10 ML VIAL IV STA (11:14)
--- NOTE | 2017-12-12 11:16 | P.PN ---
Subjective Patient is seen in follow-up for hyponatremia and acute kidney injury. Sodium level is up to 137 today. Patient's currently resting in bed. No vomiting or diarrhea. She is noted to have lower extremity edema. She has a Carpenter catheter in place and is voiding. Urine output is documented as 1450 mL in the last 24 hours. Creatinine improved to 1.16 today. Vital signs are stable. General: The patient appeared well nourished and normally developed. HEENT: Head exam is unremarkable. Neck is without jugular venous distension. LUNGS: Lungs are clear to auscultation and percussion. Breath sounds decreased. HEART: Rate and Rhythm are regular. First and second heart sounds normal. No murmurs, rubs or gallops. ABDOMEN: Abdominal exam reveals normal bowel sounds. Non-tender and non- distended. No evidence of peritonitis. EXTREMITITES: 2+ edema. Objective - Vital Signs Vital signs: Vital Signs Temp 97.6 F 12/12/17 07:00 Pulse 71 12/12/17 07:00 Resp 20 12/12/17 07:00 BP 107/73 12/12/17 07:00 Pulse Ox 100 12/12/17 07:00 Intake & Output 12/11/17 12/12/17 12/12/17 18:59 06:59 18:59 Output Total 150 1300 Balance -150 -1300 Weight 117 kg Output: Urine 150 1300 Other: Voiding Method Indwelling Catheter Indwelling Catheter # Voids 1 # Bowel Movements 0 - Labs CBC & Chem 7: 12/11/17 07:19 12/12/17 07:23 Labs: Abnormal Lab Results - Last 24 Hours (Table) 12/11/17 12/11/17 12/11/17 Range/Units 12:28 17:08 21:15 Carbon Dioxide (22-30) mmol/L Creatinine (0.52-1.04) mg/dL Glucose (74-99) mg/dL POC Glucose (mg/dL) 144 H 201 H 195 H (75-99) mg/dL 12/12/17 12/12/17 Range/Units 07:14 07:23 Carbon Dioxide 20 L (22-30) mmol/L Creatinine 1.16 H (0.52-1.04) mg/dL Glucose 117 H (74-99) mg/dL POC Glucose (mg/dL) 114 H (75-99) mg/dL Microbiology - Last 24 Hours (Table) 12/07/17 15:20 Blood Culture - Preliminary Blood No Growth after 96 hours Assessment and Plan Plan: Assessment: #1. Hyponatremia which was initially hypovolemic in nature. Now she is hypervolemic. Sodium level is improved to 137 today. She has received 1 dose of IV Lasix last 3 days. TSH and cortisol normal. #2. Nonoliguric acute kidney injury secondary to cardiorenal syndrome. Creatinine improved to 1.16 today. #3. Volume overload. #4. Systolic CHF ejection fraction of 20-25%. #5. Chronic kidney disease stage III with baseline creatinine in the range of 1 -1.2. Etiology is likely nephrosclerosis and cardiorenal syndrome. #6. Metabolic acidosis secondary to acute kidney injury. #7. Hypomagnesemia due to diuresis, status post replacement. Plan: KVO IV fluids. I will decrease salt tabs to 1 g 2 times daily. Lasix 60 mg IV once today. Maintain 1200 mL fluid restriction. Repeat electrolytes in the morning. Continue to monitor renal function and urine output. Monitor bicarb.
[2017-12-12 11:58] VITALS: BMI 44.2
[2017-12-12 12:31] LABS: Glucose,Whole Blood 114 mg/dL (75-99)
--- NOTE | 2017-12-12 15:11 | CDI ---
Last Revision, October 2017 Documentation Clarification Form Date: 12/12/2017 2:50:00 PM From: Evelia RivasCarrasquilloRICHY, CCDS Admit Date: 12/06/2017 12:44:00 AM Patient Name: Kaylah Marie V Visit Number: [id number] Discharge Date: 12/13/2017 ATTENTION: The Clinical Documentation Specialists (CDI) and [facility] Coding Staff appreciate your assistance in clarifying documentation. Please respond to the clarification below the line at the bottom and electronically sign. The CDI & [facility] Coding staff will review the response and follow-up if needed. Please note: Queries are made part of the Legal Health Record. If you have any questions, please contact the author of this message via ITS. Dr. Mulugeta Nicole: Patient is admitted with severe hyponatremia. Per 12/12 Nephrology progress note: "Nonoliguric acute kidney injury secondary to cardiorenal syndrome. Creatinine improved to 1.16 today. Volume overload. Systolic CHF ejection fraction of 20-25%." History/Risk Factors: CAD, DM, GERD, COPD, CKD stage III. Clinical Indicators: Echocardiogram Results: EF 20-25% systolic function severely impaired. Chest X Ray: 12/06: Cardiomegaly w/small pleural effusions. No overt heart failure. Chest X Ray: 12/09: Evidence of mild heart failure, probably small pleural effusions. Treatment: IV fluid bolus initially, IV Lasix, IV NaCl 3%. In your professional opinion, can you please clarify the acuity of the documented CHF if known? Systolic Heart Failure: o Acute o Chronic o Acute on Chronic Unable to Determine Other, please specify Please continue to document in your progress notes and discharge summary in order to capture severity of illness and risk of mortality. Include clinical findings that support your diagnosis. MTDD
[2017-12-12 17:32] LABS: Glucose,Whole Blood 191 mg/dL (75-99)
[2017-12-12] MEDS ORDERED: SODIUM CHLORIDE 0.9% 1,000 ML IV SCH (19:30)
--- NOTE | 2017-12-12 19:38 | P.PN ---
Progress Note - Text Progress Note Date: 12/12/17 DATE OF SERVICE: 12/12/2017 PRESENTING COMPLAINT: Nausea and vomiting HISTORY OF PRESENT ILLNESS: 77-year-old female who's been having nausea vomiting for 5-6 days drinking lately water being extremely tired and rundown no fevers no headaches no abdominal pains no focal signs. Diagnostics revealed sodium of 118 admitted for the same and sent to the ICU with hypertonic saline. INTERVAL HISTORY: 12/12/2017: Sitting up in bed eating her lunch, participating a swallow evaluation. No acute overnight events, afebrile vital signs stable. Continues to have some lower extremity edema received Lasix yesterday. Urine output in the last 24 hours was 1450 mL. Patient is a 1-2 person assist in order to get around. Appetite remains poor barely eating 25% of her meals. Last BM prior to admission. 12/11/2017: Sitting up in the bed opens eyes to her name and to voice. Remains quite lethargic. No acute overnight events, vital signs are stable. Received 2 doses of Lasix, urine output was about a liter. Appetite is poor, barely eating 25% of her meals she is a 1-2 person assist to get around. Last BM prior to admission. 12/10/2017: Sitting up in a chair opens eyes to voice and her name. Remains quite lethargic. No acute overnight events, vital signs are stable. Sodium is much improved. Pupils are unequal in size. Eating about 25% of her meals she is a 1 -2 person assist to get around. Last BM or to admission, cathartics on board. 12/09/2017: Patient moved to a chair much more responsive today. No acute overnight events , vital signs stable. Neuro checks continue per neurology. Sodium is 124 today. Still has a bit of lethargy, pupils remain unequal in size. Ate about 25 % of her breakfast, 1-2 person assist to get around. Last BM prior to admission. Transfer to medical surgical floor later today. 12/08/2017: Sitting up in bed, quite lethargic. Sodium responded well and today is 121. On exam patient's pupils were unequal, very lethargic, unable to respond to simple straightforward questions, concerns for stroke . Computed tomography scan of the brain completed negative for any acute intracranial process. Did not eat much breakfast today, currently on bed rest, last BM prior to admission. 12/07/2017 Patient evaluated in the ICU, sitting up in her bed appears comfortable, somewhat tired, did not sleep well. 3% saline has been shut off by nephrology, patient's receiving fluid bolus per nephrology. No complaints of chest pain and palpitations or muscle aches. Appetite remains low, ate only about 20% of her breakfast, up with assistance, last BM prior to admission. REVIEW OF SYSTEMS: Done for constitutional ,cardiovascular, GI, pulmonary with relevant findings as above. CURRENT MEDICATIONS Tylenol, Zyloprim, aspirin, Coreg, Ceftin, heparin subcu, insulin, NovoLog, Imdur, Synthroid, melatonin, Zofran, MiraLAX sodium chloride tablet, normal saline. Topamax PHYSICAL EXAM VITAL SIGNS: Temperature 97.6, pulse 71, respiratory rate 20, blood pressure 107/73, oxygen saturation 100% on 2 L. GENERAL APPEARANCE: Sitting up in the bed, tired appearing. HENT: Normocephalic, cavity normal, external appearance of ears/nose normal. EYES:Pupils unequal right pupil 3 mm, left pupil 2 mm. Conjunctiva normal RESPIRATORY: Respiratory effort normal. Lungs diminished to auscultation. CARDIOVASCULAR: First and second sounds normal. No edema. ABDOMEN: Soft. Liver and spleen not palpable. No tenderness. No mass palpable. PSYCHIATRY: Alert and oriented 2-3, mood and affect tired appearing INVESTIGATIONS: LABS: Carbon dioxide 20, sodium 137, creatinine 1.16. Blood culture: 12/07/2017: No growth after 122 hours Urine culture: 12/07/2017: No growth after 18 hours: ASSESSMENT: -Acute metabolic encephalopathy,anisocoria, improving -Severe hypoosmolar hyponatremia, with hypovolemia, normalized -Hypomagnesemia secondary to diuresis. -Acute urinary tract infection improving -Acute kidney injury from volume depletion and cardiorenal syndrome and Motrin, slow to respond -Chronic kidney disease stage III with baseline creatinine in the range of 1- 1.2 likely due to nephrosclerosis and cardiorenal syndrome. -Troponin leak likely from hemodynamic mismatch, no evidence of acute coronary syndrome. -Acute urinary tract infection which may precipitate the episode. -Coronary artery disease with prior history of coronary by artery bypass -Diabetes mellitus chronically on insulin, -hypothyroidism -Essential hypertension. -Primary osteoporosis and multiple joints, bilateral. -Chronic obstructive pulmonary disease is an ex-smoker. -Metabolic acidosis. -Obesity, body mass index 38.9. PLAN: IV fluids discontinued SolTabs decreased to 1 g twice a day, will receive 1 more dose of IV Lasix, continue low 100 mL fluid restriction check labs daily Continue antibiotic therapy for urinary tract infection. Discharge planning for the next 24-48 hours. Plan of care discussed at the bedside. We will follow closely. BINDER CHAINSTITCH statement: Patient was seen and examined by nurse practitioner Cristiane Giron and all elements of the case discussed with attending Dr. Allen
[2017-12-12] MEDS ORDERED: LACTULOSE 20 GM/30 ML CUP PO ONE (19:45)
[2017-12-12 21:18] LABS: Glucose,Whole Blood 172 mg/dL (75-99)
--- NOTE | 2017-12-12 22:53 | PN ---
PROGRESS NOTE DATE OF SERVICE: 12/12/2017. ATTENDING NOTE: The patient seen and examined by me. I discussed with my nurse practitioner, Ms. Giron. This is a patient admitted with severe hyponatremia. Oral intake is still somewhat limited. Tired, more communicative. EXAMINATION: Afebrile, pulse 70, respirations 20, blood pressure 107/73, pulse ox 100% on 2L. LUNGS: Decreased breath sounds. Answering simple questions. 1. Acute metabolic encephalopathy, improvement. 2. Severe hyponatremia, improved. 3. Acute renal failure, better. IV fluids have been discontinued. Fluid restriction has been maintained. Overall, patient is doing better, probably needs inpatient rehab. Discontinue the antibiotics. MMODL / IJN: [id number] /
[2017-12-13] MEDS: LEVOTHYROXINE 75 MCG TAB PO SCH (06:18)
[2017-12-13 07:28] LABS: Glucose,Whole Blood 100 mg/dL (75-99)
[2017-12-13] MEDS: TOPIRAMATE 25 MG TAB PO SCH (08:10)
[2017-12-13] MEDS: HEPARIN SODIUM,PORCINE 5,000 UNIT/ML 1 ML VIAL SQ SCH (08:10)
[2017-12-13] MEDS: SODIUM CHLORIDE TAB 1 GM TAB PO SCH (08:10)
[2017-12-13] MEDS: SENNOSIDES 8.6 MG TAB PO SCH (08:10)
[2017-12-13] MEDS: ISOSORBIDE MONONITRATE ER 30 MG TAB.ER.24H PO SCH (08:10)
[2017-12-13] MEDS: CARVEDILOL 6.25 MG TAB PO SCH (08:11)
[2017-12-13] MEDS: ASPIRIN 81 MG PO SCH (08:11)
[2017-12-13] MEDS: INSULIN ASPART 100 UNIT/ML 1 ML 10 ML VIAL SQ SCH ×2 (08:11→12:41)
[2017-12-13] MEDS: ALLOPURINOL 100 MG TAB PO SCH (08:14)
[2017-12-13 09:27] LABS: Potassium 4.1 mmol/L (3.5-5.1)
[2017-12-13 12:38] LABS: Glucose,Whole Blood 119 mg/dL (75-99)
--- NOTE | 2017-12-13 14:18 | P.PN ---
Subjective Patient is seen in follow-up for hyponatremia and acute kidney injury. Sodium level is 134 today. Patient's currently resting in bed. No vomiting or diarrhea. She is noted to have lower extremity edema. She has a Carpenter catheter in place and is voiding. Urine output is documented as 1700 mL in the last 24 hours. Creatinine improved to 1.14 today. Vital signs are stable. General: The patient appeared well nourished and normally developed. HEENT: Head exam is unremarkable. Neck is without jugular venous distension. LUNGS: Lungs are clear to auscultation and percussion. Breath sounds decreased. HEART: Rate and Rhythm are regular. First and second heart sounds normal. No murmurs, rubs or gallops. ABDOMEN: Abdominal exam reveals normal bowel sounds. Non-tender and non- distended. No evidence of peritonitis. EXTREMITITES: 2+ edema. Objective - Vital Signs Vital signs: Vital Signs Temp 96.1 F L 12/13/17 07:00 Pulse 72 12/13/17 07:00 Resp 23 12/13/17 07:00 BP 103/57 12/13/17 07:00 Pulse Ox 98 12/13/17 07:00 Intake & Output 12/12/17 12/13/17 12/13/17 18:59 06:59 18:59 Intake Total 200 Output Total 500 1200 Balance -500 -1000 Weight 117 kg 117 kg Intake: Oral 200 Output: Urine 500 1200 Other: Voiding Method Indwelling Catheter Indwelling Catheter Indwelling Catheter # Bowel Movements 0 - Labs CBC & Chem 7: 12/11/17 07:19 12/13/17 08:23 Labs: Abnormal Lab Results - Last 24 Hours (Table) 12/12/17 12/12/17 12/13/17 Range/Units 17:19 21:15 07:25 Sodium (137-145) mmol/L Creatinine (0.52-1.04) mg/dL Glucose (74-99) mg/dL POC Glucose (mg/dL) 191 H 172 H 100 H (75-99) mg/dL 12/13/17 12/13/17 Range/Units 08:23 12:27 Sodium 134 L (137-145) mmol/L Creatinine 1.14 H (0.52-1.04) mg/dL Glucose 111 H (74-99) mg/dL POC Glucose (mg/dL) 119 H (75-99) mg/dL Microbiology - Last 24 Hours (Table) 12/07/17 15:20 Blood Culture - Preliminary Blood No Growth after 120 hours Assessment and Plan Plan: Assessment: #1. Hyponatremia which was initially hypovolemic in nature. Now she is hypervolemic. Sodium level is down compared to yesterday at 134 today. She has received 1 dose of IV Lasix last 3 days. TSH and cortisol normal. #2. Nonoliguric acute kidney injury secondary to cardiorenal syndrome. Creatinine improved to 1.14 today. #3. Volume overload. #4. Systolic CHF ejection fraction of 20-25%. #5. Chronic kidney disease stage III with baseline creatinine in the range of 1 -1.2. Etiology is likely nephrosclerosis and cardiorenal syndrome. #6. Metabolic acidosis secondary to acute kidney injury. #7. Hypomagnesemia due to diuresis, status post replacement. Plan: Remains off IV fluids. Over the last 3 days the dose of salt tabs has been tapered - currently on 1 g 2 times daily. Lasix 60 mg IV once today - will hold if sodium level drops further tomorrow. Maintain 1200 mL fluid restriction. Repeat electrolytes in the morning. Continue to monitor renal function and urine output. Monitor bicarb.
[2017-12-13] MEDS ORDERED: FUROSEMIDE 10 MG/ML 10 ML VIAL IV STA (14:19)
--- NOTE | 2017-12-13 15:33 | DS ---
DISCHARGE SUMMARY DATE OF ADMISSION: 12/06/2017 DATE OF DISCHARGE: 12/13/2017 FINAL DIAGNOSES: 1. Severe hypoosmolar hyponatremia, hypovolemic from decreased salt intake. 2. Troponin leak probably from hemodynamic mismatch. No evidence of acute coronary artery syndrome. 3. Acute urinary tract infection with negative culture. 4. Coronary artery disease, prior history of coronary artery bypass. 5. Hypothyroid. 6. Essential hypertension. 7. Primary osteoarthritis multiple joints, bilateral. 8. Chronic obstructive pulmonary disease in an ex-smoker. 9. Metabolic acidosis. 10.Obesity; body mass index of 38.9. 11.Acute metabolic encephalopathy from severe electrolyte metabolic derangement. 12.Ischemic cardiomyopathy from systolic dysfunction, ejection fraction 20% to 25% from underlying coronary artery disease. 13.Severe tricuspid regurgitation, nonrheumatic. 14.Acute renal failure, likely prerenal from decreased fluid intake. HOSPITAL COURSE: Patient presented feeling weak, tired, rundown, after been having nausea, vomiting with a good 5 days ago. He was drinking water. Patient's initial sodium was way down to 115. Patient was transferred to the ICU. By the time of discharge, patient's sodium had nicely come up to 134. Patient also felt to be hypovolemic. Patient also creatinine had gone up to 1.60, did come down to 1.14. By the time of discharge, patient is eating better to somewhat tired, lethargic. Patient because of her change in mental status, did have a neurological workup done including CT scan of the brain, MRI of the brain, head MRA, all came back to be negative, felt to be purely metabolic. Patient also did have a 2-D echocardiogram that showed EF of 20% to 25% and severe tricuspid regurgitation. Today, patient is able answer simple questions. Eating a bit better, but lethargic. Needs inpatient rehab. CONSULTATION: 1. Dr. Amin from Cardiology. 2. Dr. Murillo from Nephrology. 3. Dr. Baeza from Pulmonary Critical Care. Patient current sodium is 134, BUN 15, creatinine 1.14. DISCHARGE MEDICATIONS: 1. Fosamax 35 mg p.o. on Saturday. 2. Allopurinol 100 mg p.o. daily. 3. Biotin 5 mg p.o. daily. 4. Vitamin D3 two thousand units p.o. daily. 5. Imdur ER 30 mg p.o. daily. 6. Synthroid 150 mcg p.o. daily. 7. Paxil 20 mg p.o. daily. 8. Zantac 150 mg p.o. b.i.d. 9. Aspirin 81 mg p.o. daily. 10.Coreg 6.25 p.o. b.i.d. 11.Probiotic 1 capsule p.o. daily. 12.Vitamin B complex 1 capsule p.o. daily. 13.Melatonin 3 mg q.h.s. p.r.n. 14.MiraLAX 17 g p.o. Saturday, Saturday and Saturday. 15.Senokot 8.6 p.o. daily. 16.Sodium chloride tablets discontinued. 17.Topamax 50 mg p.o. b.i.d. 18.Aldactone 12.5 mg p.o. daily. DISPOSITION: [facility]. Avoid too much free fluids like tea, coffee, water. Follow up with Dr. Lee at the [facility]. Dr. Lemos from [facility] after discharge from the [facility]. Cardiology in 1 week. Labs, CBC, BMP in 4 days 4 days. PHYSICAL EXAMINATION: LUNGS: Decreased breath sounds. CARDIOVASCULAR: First and second sounds, mild edema. Patient is lethargic but able to answer questions. CODE STATUS: DNR. Discussion and discharge planning more than 35 minutes. MMMOMOL / NITZAN: [id number] /
[2017-12-13 15:43] VITALS: BP 135/61; PULSE 80; RESP 20; TEMP 97.4
[2017-12-14] MEDS ORDERED: FUROSEMIDE 20 MG TAB PO SCH (09:00)
== END 2017-12-13 17:36 | DRG 640 ==
LOC: EC 23:12 → 6SEL 12-06 00:44 → 6ICU 12-06 17:58 → 4MS4W 12-09 12:08
PROVIDERS: ADMIT Hospitalist; ATTEND Hospitalist
DX: E87.1 Hypo-osmolality and hyponatremia (principal); G93.41 Metabolic encephalopathy; R57.1 Hypovolemic shock; N17.9 Acute kidney failure, unspecified; E11.21 Type 2 diabetes mellitus with diabetic nephropathy; E66.01 Morbid (severe) obesity due to excess calories; E83.42 Hypomagnesemia; I36.1 Nonrheumatic tricuspid (valve) insufficiency; I13.0 Hypertensive heart and chronic kidney disease with heart failure and stage 1 through stage 4 chronic kidney disease, or unspecified chronic kidney disease; I50.22 Chronic systolic (congestive) heart failure; N39.0 Urinary tract infection, site not specified; E87.2 Acidosis; E87.5 Hyperkalemia; E86.1 Hypovolemia; E03.9 Hypothyroidism, unspecified; E11.22 Type 2 diabetes mellitus with diabetic chronic kidney disease; E87.8 Other disorders of electrolyte and fluid balance, not elsewhere classified; H57.02 Anisocoria; I25.10 Atherosclerotic heart disease of native coronary artery without angina pectoris; I25.5 Ischemic cardiomyopathy; J44.9 Chronic obstructive pulmonary disease, unspecified; K21.9 Gastro-esophageal reflux disease without esophagitis; M15.9 Polyosteoarthritis, unspecified; M81.0 Age-related osteoporosis without current pathological fracture; N18.3 Chronic kidney disease, stage 3 (moderate); T50.2X5A Adverse effect of carbonic-anhydrase inhibitors, benzothiadiazides and other diuretics, initial encounter; Z66 Do not resuscitate; Z79.1 Long term (current) use of non-steroidal anti-inflammatories (NSAID); Z79.4 Long term (current) use of insulin; Z79.82 Long term (current) use of aspirin; Z79.83 Long term (current) use of bisphosphonates; Z79.899 Other long term (current) drug therapy; Z82.49 Family history of ischemic heart disease and other diseases of the circulatory system; Z87.11 Personal history of peptic ulcer disease; Z87.891 Personal history of nicotine dependence; Z95.1 Presence of aortocoronary bypass graft
CPT/HCPCS: 36415; 70450; 70544; 70551; 71045; 71046; 76770; 80048; 80053; 81001; 82150; 82533; 82570; 83605; 83690; 83735; 83930; 83935; 84133; 84295; 84300; 84443; 84484; 84550; 85025; 87040; 87086; 93005; 93306; 96361; 96374; 99285